=== PATIENT | female | born 1995 | race Caucasian/White ===

== ENCOUNTER 2018-11-03 14:48 | Emergency (ER) | payer BC ==
[2018-11-03] MEDS ORDERED: NS 0.9% 1000 ML** 2,000 ML IV ONE (14:56)
--- NOTE | 2018-11-03 15:17 | ED ---
Abdominal Pain/Female - HPI Summary HPI Summary: Patient is a 23-year-old obese female with a history of type II DM and pancreatitis presenting to the ED with epigastric pain and RUQ pain with associated nausea and vomiting. She states she has been in DKA before and states this feels different. She is also stating this feels similar to her previous pancreatitis episodes. Denies any alcohol use. She states she has been hospitalized for acute pancreatitis with unknown cause. Last by mouth intake was yesterday, continues to have nausea and vomiting. She is also endorsing some bilateral lower extremity cramping. She continues to take all of her medications as prescribed including her insulin. Nothing makes symptoms better or worse. She arrives by EMS and a glucose obtained was 278. - History of Current Complaint Chief Complaint: EDGeneral Stated Complaint: STOMACH PAIN PER EMS Time Seen by Provider: 11/03/18 14:49 Hx Obtained From: Patient ?: No Onset/Duration: Sudden Onset Timing: Constant Severity Initially: Moderate Severity Currently: Moderate Pain Intensity: 8 Pain Scale Used: 0-10 Numeric Location: Epigastric Radiates: No Character: Sharp Aggravating Factor(s): Nothing Alleviating Factor(s): Nothing Associated Signs and Symptoms: Positive: Nausea, Vomiting - Risk Factors Ectopic Risk Factor: Negative Ovarian Torsion Risk Factor: Negative Allergies/Adverse Reactions: Allergies Allergy/AdvReac Type Severity Reaction Status Date / Time acetaminophen [From Tylenol] Allergy Hives/Diff. Verified 11/03/18 14:55 Breathing/I tching bee venom protein (honey bee) Allergy Swelling Verified 11/03/18 14:55 Of Face,Lips,& Throat ibuprofen Allergy Hives/Diff. Verified 11/03/18 14:55 Breathing/I tching Penicillins Allergy Hives Verified 11/03/18 14:55 tramadol Allergy Hives Verified 11/03/18 14:55 Home Medications: Home Medications Insulin NPH Hum/Reg Insulin Hm [Novolin 70-30 Flexpen] 75 unit SUBCUT BID [History Confirmed 11/03/18] PMH/Surg Hx/FS Hx/Imm Hx Previously Healthy: Yes - Immunization History Hx Pertussis Vaccination: No Immunizations Up to Date: Yes Infectious Disease History: No Infectious Disease History: Denies: Traveled Outside the [place] in Last 30 Days - Social History Occupation: Unemployed Lives: With Family Alcohol Use: None Hx Substance Use: No Substance Use Type: Reports: None Hx Tobacco Use: No Smoking Status (MU): Never Smoked Tobacco Review of Systems Constitutional: Negative Negative: Fever, Chills, Fatigue, Skin Diaphoresis Negative: Palpitations, Chest Pain Negative: Shortness Of Breath, Cough Positive: Abdominal Pain, Vomiting, Nausea. Negative: Diarrhea Genitourinary: Negative Positive: no symptoms reported, see HPI Negative: Arthralgia, Myalgia Skin: Negative All Other Systems Reviewed And Are Negative: Yes Physical Exam Triage Information Reviewed: Yes Vital Signs On Initial Exam: Initial Vitals Temp Pulse Resp BP Pulse Ox 98 F 80 20 116/77 97 11/03/18 14:49 11/03/18 14:49 11/03/18 14:49 11/03/18 14:49 11/03/18 14:49 Vital Signs Reviewed: Yes Appearance: Positive: Well-Appearing, Well-Nourished Skin: Positive: Warm, Skin Color Reflects Adequate Perfusion Head/Face: Positive: Normal Head/Face Inspection Neck: Positive: Nontender, No Lymphadenopathy Respiratory/Lung Sounds: Positive: Clear to Auscultation, Breath Sounds Present Cardiovascular: Positive: RRR, Pulses are Symmetrical in both Upper and Lower Extremities Abdomen Description: Positive: Other: - tenderness to the epigastric region and RUQ Bowel Sounds: Positive: Present Musculoskeletal: Positive: Normal, Strength/ROM Intact Neurological: Positive: Alert, Oriented to Person Place, Time, Speech Normal Psychiatric: Positive: Affect/Mood Appropriate AVPU Assessment: Alert Diagnostics - Vital Signs Vital Signs Temp Pulse Resp BP Pulse Ox 11/03/18 14:49 98 F 80 20 116/77 97 - Laboratory Result Diagrams: 11/03/18 15:30 11/03/18 15:30 Lab Statement: Any lab studies that have been ordered have been reviewed, and results considered in the medical decision making process. Abdominal Pain Fem Course/Dx - Course Course Of Treatment: During this course treatment, the patient's evaluated for acute onset of mid abdominal pain which is nonradiating. She is also endorsing RUQ pain. Denies any flank pain bilaterally. On physical examination, obese female patient appears in pain distress, rating at 8/10. Dry mucous membranes. Currently complaining of abdominal pain and bilateral leg cramping. She denies any history of DVTs or PE. Denies any CP or SOB. Lungs CTA, RRR. Abdominal tender just to the RUQ with positive Vazquez sign. Patient is status post cholecystectomy. No pain to the LUQ or LLQ. No pain to the RLQ. Symptoms are worse with positioning or better with rest. She is not taken any medication [id number] for relief. She is endorsing a 2/10 headache. Labs obtained: elevated lipase, otherwise unremarkable. She is given 2 L fluids with good effect. She is given famotidine and Zofran. On re-examination , patient states she is asymptomatic. Denies any pain at this time. dx with abd pain. - Diagnoses Provider Diagnoses: Abdominal pain Discharge ED - Sign-Out/Discharge Documenting (check all that apply): Patient Departure Patient Received Moderate/Deep Sedation with Procedure: No - Discharge Plan Condition: Stable Disposition: HOME Patient Education Materials: Acute Abdominal Pain (ED) Referrals: No Primary Care Phys,NOPCP [Primary Care Provider] - Additional Instructions: Eat small amounts at a time Drink plenty of fluids If symptoms worsen, please return to the ED - Billing Disposition and Condition Condition: STABLE Disposition: Home
[2018-11-03 15:52] LABS: ABS Basophils 0.1 10^3/ul (0-0.2); ABS Eosinophils 0.2 10^3/ul (0-0.6); ABS Lymphocytes 3.1 10^3/ul (1.0-4.8); ABS Monocytes 0.6 10^3/ul (0-0.8); ABS Neutrophils 5.8 10^3/ul (1.5-7.7); Eosinophil % 2.5 %; Hematocrit 36 % (35-47); Hemoglobin 12.4 g/dL (12.0-16.0); Lymphocyte % 31.9 %; Mean Corpuscular HGB Conc 34 g/dL (31-36); Mean Corpuscular Hemoglobin 31 pg (27-31); Mean Corpuscular Volume 91 fL (80-97); Mean Platelet Volume 8.3 fL (7.4-10.4); Nucleated Red Blood Cells % 0.1; Platelet Count 241 10^3/uL (150-450); Red Blood Count 3.97 10^6 /uL (3.70-4.87); Red Cell Distribution Width 14 % (10-15); White Blood Count 9.9 10^3/uL (3.5-10.8)
[2018-11-03 16:02] LABS: ALT 26 U/L (7-52); AST 15 U/L (13-39); Albumin 3.5 g/dL (3.2-5.2); Albumin/Globulin Ratio 1.4 (1-3); Alkaline Phosphatase 64 U/L (34-104); Amylase 44 U/L (29-103); Anion Gap 4 mmol/L (2-11); BUN/Creatinine Ratio 16.5 (8-20); Blood Urea Nitrogen 15 mg/dL (6-24); C Reactive Protein 12.32 mg/L (<8.01); CO2 Carbon Dioxide 25 mmol/L (22-32); Calcium 8.1 mg/dL (8.6-10.3); Chloride 108 mmol/L (101-111); EGFR African American 91.1 (>60); EGFR Non-African American 75.3 (>60); Globulin 2.5 g/dL (2-4); Glucose 276 mg/dL (70-100); Magnesium 1.8 mg/dL (1.9-2.7); Potassium 4.2 mmol/L (3.5-5.0); Sodium 137 mmol/L (135-145)
[2018-11-03 16:04] LABS: HCG Pregnancy < 0.60 mIU/mL
[2018-11-03] MEDS ORDERED: Ondansetron INJ* 2 MG/ML VIAL IV ONE (16:11)
[2018-11-03] MEDS ORDERED: Famotidine IV* 10 MG/ML 2 ML (20 mg) IV SLOW PU ONE (16:11)
[2018-11-03 17:26] VITALS: BP 122/74
== END 2018-11-03 17:25 | disposition home or self-care (01) ==
LOC: ED 14:48
DX: R10.11 Right upper quadrant pain (principal); E11.9 Type 2 diabetes mellitus without complications; K85.90 Acute pancreatitis without necrosis or infection, unspecified; Z79.4 Long term (current) use of insulin; Z88.0 Allergy status to penicillin; E66.9 Obesity, unspecified
CPT/HCPCS: 36415; 80053; 82150; 82803; 83605; 83690; 83735; 84702; 85025; 86140; 96361; 96374; 96375; 99283; J2405

== ENCOUNTER 2018-11-05 20:56 | Emergency (ER) | payer BC ==
[2018-11-05] MEDS ORDERED: NS 0.9% 1000 ML** 1,000 ML IV ONE (21:30)
--- NOTE | 2018-11-05 21:46 | ED ---
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 She notes that the pain is constant, described as stabbing, and she rates her current pain severity an 8/10. She mentions that her blood sugar levels were above 400 earlier today and has taken over 100 units of regular insulin, and also takes 70/30. She has currently run out of regular insulin. Blood sugar before leaving her home was 480. She is unable to eat or drink anything because she immediately vomits afterwards. No alleviating factors noted. She also reports nausea and burning when urinating but denies any fever or diarrhea. She is a smoker and has Hx of DM, HTN, asthma, and anxiety. Home Medications Medication Instructions Recorded Confirmed Type Insulin NPH Hum/Reg Insulin Hm 75 unit SUBCUT BID 11/03/18 11/05/18 History [Novolin 70-30 Flexpen] Insulin Regular, Human [Humulin R 20 unit SUBCUT TID WITH MEALS 11/03/18 History U-500 Kwikpen] - History of Current Complaint Chief Complaint: EDDiabeticProb Stated Complaint: "ABDOMINAL PAIN UNCONTROLLED SUGAR PER PT" Time Seen by Provider: 11/05/18 21:22 Hx Obtained From: Patient Onset/Duration: Sudden Onset, Lasting Days, Still Present Timing: Constant Severity Initially: Severe Severity Currently: Severe Pain Intensity: 8 Pain Scale Used: 0-10 Numeric Location: Discrete At: RUQ Character: Other: - stabbing Aggravating Factor(s): Food Alleviating Factor(s): Nothing Associated Signs and Symptoms: Positive: Nausea, Vomiting, Other: - burning. Negative: Fever, Diarrhea Allergies/Adverse Reactions: Allergies Allergy/AdvReac Type Severity Reaction Status Date / Time acetaminophen [From Tylenol] Allergy Hives/Diff. Verified 11/03/18 14:55 Breathing/I tching bee venom protein (honey bee) Allergy Swelling Verified 11/03/18 14:55 Of Face,Lips,& Throat ibuprofen Allergy Hives/Diff. Verified 11/03/18 14:55 Breathing/I tching Penicillins Allergy Hives Verified 11/03/18 14:55 tramadol Allergy Hives Verified 11/03/18 14:55 PMH/Surg Hx/FS Hx/Imm Hx Endocrine/Hematology History: Reports: Hx Diabetes Cardiovascular History: Reports: Hx Hypertension Respiratory History: Reports: Hx Asthma Psychiatric History: Reports: Hx Anxiety - Surgical History Surgery Procedure, Year, and Place: cholecystectomy Infectious Disease History: No Infectious Disease History: Denies: Traveled Outside the [place] in Last 30 Days - Family History Known Family History: Positive: Hypertension, Diabetes, Other - Stomach Cancer - Social History Alcohol Use: Occasionally Hx Substance Use: No Substance Use Type: Reports: None Hx Tobacco Use: No Smoking Status (MU): Light Every Day Tobacco Smoker Review of Systems Negative: Fever Positive: Abdominal Pain, Vomiting, Nausea. Negative: Diarrhea Positive: burning All Other Systems Reviewed And Are Negative: Yes Physical Exam - Summary Physical Exam Summary: General: Well-developed, Well-nourished, morbidly obese female. No acute distress. HEENT: Normocephalic, Atraumatic. Eyes: Conjuctiva normal, PERRL. Ears: TMs within normal limits. Nares: (-) discharge, (-) erythema. Oropharynx: Clear, mucous membranes moist, (-) exudates. Neck: Soft, FROM, (-) lymphadenopathy, (-) thyromegaly, (-) JVD. Cardiovascular: Normal sinus rhythm, (-) murmur. Lungs: Clear to auscultation bilaterally (-) wheezes, (-) rales, (-) rhonchi. Abdomen: Soft, moderate RUQ tenderness, non-distended, (-) organomegaly, normal bowel sounds. Back: (-) CVA tenderness Extremities: No edema. Skin: Warm, dry, (-) rash. Neuro: Alert and oriented x3, no focal deficits. Psychiatric: Mood normal, affect normal. Triage Information Reviewed: Yes Vital Signs On Initial Exam: Initial Vitals Temp Pulse Resp BP Pulse Ox 98.5 F 95 20 136/92 99 11/05/18 20:56 11/05/18 20:56 11/05/18 20:56 11/05/18 20:56 11/05/18 20:56 Vital Signs Reviewed: Yes Diagnostics - Vital Signs Vital Signs Temp Pulse Resp BP Pulse Ox 11/05/18 20:56 98.5 F 95 20 136/92 99 - Laboratory Result Diagrams: 11/05/18 22:18 11/05/18 22:18 Lab Statement: Any lab studies that have been ordered have been reviewed, and results considered in the medical decision making process. Re-Evaluation - Re-Evaluation First Eval Re-Evaluation Time: 01:49 Comment: I have discussed results with the patient and (Sx) is resolved. Discussed symptoms that warrant immediate return to ED. 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 She also reports nausea and burning when urinating but denies any fever or diarrhea. Test results are normal except for sodium 134, chloride 100, Creatinine 1.09, Glucose 511 @2218, AST 12, POC glucose 344 @0059, and 3+ urine glucose. In the ED course pt was given 20 units insulin, 15 mg Toradol, 4 mg Zofran, 40 mg Protonix, and 1000 mls fluids. Final Dx are abdominal pain and hyperglycemia. The pt will be discharged home with PCP follow up. Pt is agreeable with this plan. - Diagnoses Provider Diagnoses: Hyperglycemia, Abdominal pain Discharge ED - Sign-Out/Discharge Documenting (check all that apply): Patient Departure - discharge Patient Received Moderate/Deep Sedation with Procedure: No - Discharge Plan Condition: Stable Disposition: HOME Prescriptions: Insulin Regular, Human [Humulin R U-500 Kwikpen] 20 unit SUBCUT TID WITH MEALS # 30 [email or web address] Patient Education Materials: Acute Abdominal Pain (ED), Diabetic Hyperglycemia (ED) Referrals: [facility] [Outside] - 3 Days Additional Instructions: Please follow a clear liquid diet. Please take home medications as prescribed. Please follow up with your primary care physician within three days. Please return to ED for any new or worsening symptoms. - Billing Disposition and Condition Condition: STABLE Disposition: Home - Attestation Statements Document Initiated by Maniibe: Yes Documenting Scribe: Toni Joya Provider For Whom Gm is Documenting (Include Credential): Zena Boyer MD Scribe Attestation: Toni Shoemaker, scribed for Zena Boyer MD on 11/06/18 at 0409. Scribe Documentation Reviewed: Yes Provider Attestation: The documentation as recorded by the Toni lozano accurately reflects the service I personally performed and the decisions made by me, Zena Boyer MD Status of Scribe Document: Viewed
[2018-11-05 21:55] LABS: Urine Appearance Clear; Urine Bilirubin Negative (Negative); Urine Blood Negative (Negative); Urine Color Straw; Urine Glucose 3+(>=500 mg/dL) (Negative); Urine Ketones Negative (Negative); Urine Nitrite Negative (Negative); Urine Protein Negative (Negative); Urine Specific Gravity 1.021 (1.010-1.030); Urine Urobilinogen Negative (Negative)
[2018-11-05 22:32] LABS: ABS Basophils 0.1 10^3/ul (0-0.2); ABS Eosinophils 0.2 10^3/ul (0-0.6); ABS Lymphocytes 3.5 10^3/ul (1.0-4.8); ABS Monocytes 0.5 10^3/ul (0-0.8); ABS Neutrophils 5.5 10^3/ul (1.5-7.7); Eosinophil % 2.2 %; Hematocrit 40 % (35-47); Hemoglobin 13.7 g/dL (12.0-16.0); Lymphocyte % 35.6 %; Mean Corpuscular HGB Conc 34 g/dL (31-36); Mean Corpuscular Hemoglobin 31 pg (27-31); Mean Corpuscular Volume 91 fL (80-97); Mean Platelet Volume 8.8 fL (7.4-10.4); Nucleated Red Blood Cells % 0.1; Platelet Count 262 10^3/uL (150-450); Red Blood Count 4.39 10^6 /uL (3.70-4.87); Red Cell Distribution Width 14 % (10-15); White Blood Count 9.7 10^3/uL (3.5-10.8)
[2018-11-05 22:35] LABS: INR 1.09 (0.82-1.09)
[2018-11-05 22:46] LABS: Albumin/Globulin Ratio 1.4 (1-3); BUN/Creatinine Ratio 17.4 (8-20); Calcium 10.1 mg/dL (8.6-10.3); EGFR Non-African American 61.2 (>60); Globulin 2.9 g/dL (2-4); Potassium 4.4 mmol/L (3.5-5.0); Total Bilirubin 0.3 mg/dL (0.2-1.0); Total Protein 6.9 g/dL (6.4-8.9)
[2018-11-05] MEDS ORDERED: Insulin REGULAR(*) 1 UNITS UNIT SUBCUT ONE (22:49)
[2018-11-05 22:52] LABS: HCG Pregnancy 0.88 mIU/mL
[2018-11-05] MEDS ORDERED: Ketorolac INJ* 30 MG/ML 1 ML VIAL IV PUSH ONE (23:47)
[2018-11-05] MEDS ORDERED: Ondansetron INJ* 2 MG/ML VIAL IV ONE (23:48)
[2018-11-06] MEDS ORDERED: Pantoprazole IV* 40 MG IV ONE (00:17)
[2018-11-06 02:11] VITALS: BP 133/89
== END 2018-11-06 02:10 | disposition home or self-care (01) ==
LOC: ED 20:56
DX: R10.11 Right upper quadrant pain (principal); E11.65 Type 2 diabetes mellitus with hyperglycemia; I10 Essential (primary) hypertension; J45.909 Unspecified asthma, uncomplicated; F41.9 Anxiety disorder, unspecified; F17.200 Nicotine dependence, unspecified, uncomplicated; Z90.49 Acquired absence of other specified parts of digestive tract; Z79.4 Long term (current) use of insulin; Z88.6 Allergy status to analgesic agent; Z88.5 Allergy status to narcotic agent; Z88.0 Allergy status to penicillin
CPT/HCPCS: 36415; 80053; 81003; 83605; 83690; 84702; 85025; 85610; 87040; 96361; 96374; 96375; 99284; J1885; J2405

== ENCOUNTER 2019-01-01 09:10 | Observation (INO) | payer BC, OTHER ==
[2019-01-01] MEDS ORDERED: Ondansetron INJ* 2 MG/ML VIAL IV ONE (09:29)
[2019-01-01] MEDS ORDERED: NS 0.9% 1000 ML** 1,000 ML IV ONE ×2 (09:29→11:02)
--- NOTE | 2019-01-01 09:34 | ED ---
Abdominal Pain/Female - HPI Summary HPI Summary: Patient is a 23-year-old female who presents emergency department for right lower quadrant abdominal pain, nausea and vomiting 3 days. Patient has a past medical history of hypertension, obesity, type 2 diabetes, history of pancreatitis. Patient denies fever, diarrhea, dysuria. Symptoms are moderate in severity. No current modifying factors. Patient states she has not been able to eat or drink a last few days secondary to nausea. Denies ETOH. Hx of cholecystectomy. Pt. otherwise denies vagina discharge/bleeding or concern for STIs. - History of Current Complaint Chief Complaint: EDAbdPain Stated Complaint: LOW RT QUADRANT PAIN PER PT Time Seen by Provider: 01/01/19 09:16 Hx Obtained From: Patient Pain Intensity: 8 Allergies/Adverse Reactions: Allergies Allergy/AdvReac Type Severity Reaction Status Date / Time acetaminophen [From Tylenol] Allergy Hives/Diff. Verified 01/01/19 09:14 Breathing/I tching bee venom protein (honey bee) Allergy Swelling Verified 01/01/19 09:14 Of Face,Lips,& Throat ibuprofen Allergy Hives/Diff. Verified 01/01/19 09:14 Breathing/I tching Penicillins Allergy Hives Verified 01/01/19 09:14 tramadol Allergy Hives Verified 01/01/19 09:14 PMH/Surg Hx/FS Hx/Imm Hx Previously Healthy: Yes Endocrine/Hematology History: Reports: Hx Diabetes Cardiovascular History: Reports: Hx Hypertension Respiratory History: Reports: Hx Asthma Psychiatric History: Reports: Hx Anxiety - Surgical History Surgery Procedure, Year, and Place: cholecystectomy Infectious Disease History: No Infectious Disease History: Denies: Traveled Outside the [place] in Last 30 Days - Family History Known Family History: Positive: Hypertension, Diabetes, Other - Stomach Cancer - Social History Occupation: Unemployed Lives: With Family Alcohol Use: Occasionally Hx Substance Use: No Substance Use Type: Reports: None Hx Tobacco Use: No Smoking Status (MU): Light Every Day Tobacco Smoker Review of Systems Constitutional: Negative Negative: Fever Cardiovascular: Negative Respiratory: Negative Positive: Abdominal Pain, Vomiting, Nausea Genitourinary: Negative Musculoskeletal: Negative Skin: Negative All Other Systems Reviewed And Are Negative: Yes Physical Exam Triage Information Reviewed: Yes Vital Signs On Initial Exam: Initial Vitals Temp Pulse Resp BP Pulse Ox 97.9 F 93 16 135/85 98 01/01/19 09:12 01/01/19 09:12 01/01/19 09:12 01/01/19 09:12 01/01/19 09:12 Vital Signs Reviewed: Yes Appearance: Positive: Well-Appearing - Patient lying in bed in no acute distress. Appears in pain with changing positions. Skin: Positive: Warm, Dry Head/Face: Positive: Normal Head/Face Inspection Eyes: Positive: Normal, EOMI Neck: Positive: Supple Respiratory/Lung Sounds: Positive: Clear to Auscultation, Breath Sounds Present Cardiovascular: Positive: Normal, RRR Abdomen Description: Positive: Other: - Obese. Abdomen is soft with marked tenderness to the right lower quadrant with guarding. Bilateral flank pain on palpation. Neurological: Positive: Normal, CN Intact II-III Psychiatric: Positive: Affect/Mood Appropriate Procedures - Procedure Summary Procedure Summary: US IV Ultrasound Guided Peripheral IV Procedure Note Indication: Unable to obtain adequate IV access Skin Prep:Chlorhexidine Sterile Prep (allowed to dry for thirty seconds) Sterility: Gloves Insertion: Appropriate time out was taken. Ultrasound guidance was utilized for vein selection, to document selected vessel patency and real time ultrasound visualization of vascular needle entry into venous lumen. Insertion Site: Left AC vein Type of catheter: 18 gauge catheter Blood return:yes Saline lock: yes Post Procedure: Estimated blood loss: minimal - Sedation Patient Received Moderate/Deep Sedation with Procedure: No Diagnostics - Vital Signs Vital Signs Temp Pulse Resp BP Pulse Ox 01/01/19 09:12 97.9 F 93 16 135/85 98 - Laboratory Result Diagrams: 01/01/19 09:51 01/01/19 09:51 Lab Statement: Any lab studies that have been ordered have been reviewed, and results considered in the medical decision making process. Abdominal Pain Fem Course/Dx - Course Course Of Treatment: Patient in with abdominal pain, nausea and vomiting. She is afebrile with stable vital signs. Patient reportedly typically goes to [facility] and has been to our ER 3 times for abdominal pain the last few months. Pt. has numerous drug allergies. Pt. given pain and nausea meds. Will obtain labs and ct scan to evaluate appendix . CBC unremarkable. Mildly elevated CRP. Lipase mildly elevated at 238. CT scan negative for acute findings. On re-exam pt. still c/o significant RLQ pain, will obtain u/s to evaluate ovary. U/S negative for acute findngs per radiology. pt. notes pain and nausea are persisting. Pt. notes she has not been able to eat or drink secondary to epigastric pain and N/V. Suspect early pancreatitis. Unclear of RLQ pain. Discussed with Dr. Jordan, hospitalist, who agrees to admission. - Diagnoses Differential Diagnosis: Positive: Appendicitis, Ectopic , Ovarian Cyst , , Renal Colic Provider Diagnoses: Pancreatitis, Abdominal pain Discharge ED - Sign-Out/Discharge Documenting (check all that apply): Patient Departure - Discharge Plan Condition: Stable Disposition: ADMITTED TO [facility] - Billing Disposition and Condition Condition: STABLE Disposition: Admitted to [facility] - Attestation Statements Provider Attestation: I have seen the patient with the ALVARADO and agree with the plan and documentation below except as noted: 23-year-old female with history of diabetes and obesity presents with epigastric and right lower pain, found to have elevated lipase, no evidence of appendicitis or ovarian pathology. Admitted for fluid hydration and pain control. Glenis Arnett MD
[2019-01-01 09:38] LABS: Urine Appearance Clear; Urine Bilirubin Negative (Negative); Urine Blood Negative (Negative); Urine Color Straw; Urine Glucose Negative (Negative); Urine Ketones Negative (Negative); Urine Nitrite Negative (Negative); Urine Protein Negative (Negative); Urine Specific Gravity 1.005 (1.010-1.030); Urine Urobilinogen Negative (Negative)
[2019-01-01 10:09] LABS: ABS Basophils 0.1 10^3/ul (0-0.2); ABS Eosinophils 0.2 10^3/ul (0-0.6); ABS Lymphocytes 3.3 10^3/ul (1.0-4.8); ABS Monocytes 0.4 10^3/ul (0-0.8); ABS Neutrophils 4.6 10^3/ul (1.5-7.7); Eosinophil % 2.8 %; Hematocrit 44 % (35-47); Hemoglobin 14.7 g/dL (12.0-16.0); Lymphocyte % 37.9 %; Mean Corpuscular HGB Conc 34 g/dL (31-36); Mean Corpuscular Hemoglobin 31 pg (27-31); Mean Corpuscular Volume 92 fL (80-97); Nucleated Red Blood Cells % 0.1; Red Blood Count 4.73 10^6 /uL (3.70-4.87); Red Cell Distribution Width 13 % (10-15); White Blood Count 8.6 10^3/uL (3.5-10.8)
[2019-01-01 10:24] LABS: Albumin 4.1 g/dL (3.2-5.2); Anion Gap 8 mmol/L (2-11); CO2 Carbon Dioxide 22 mmol/L (22-32); Chloride 107 mmol/L (101-111); Potassium 4.2 mmol/L (3.5-5.0); Sodium 137 mmol/L (135-145)
[2019-01-01 10:30] LABS: ALT 56 U/L (7-52); AST 38 U/L (13-39); Albumin/Globulin Ratio 1.3 (1-3); Alkaline Phosphatase 72 U/L (34-104); BUN/Creatinine Ratio 16.9 (8-20); Blood Urea Nitrogen 15 mg/dL (6-24); C Reactive Protein 13.23 mg/L (<8.01); EGFR African American 93.5 (>60); EGFR Non-African American 77.3 (>60); Globulin 3.1 g/dL (2-4); Glucose 133 mg/dL (70-100); Total Protein 7.2 g/dL (6.4-8.9)
[2019-01-01] MEDS ORDERED: Morphine 4 MG/ML VIAL (1 ml) 4 MG/ML VIAL IV ONE ×2 (10:47→12:41)
[2019-01-01 10:53] LABS: Platelet Count Platelets clumped. 10^3/uL (150-450)
--- OUTSIDE RECORDS SUMMARY | 2019-01-01 10:55 | XMS REPORT | Continuity of Care Document ---
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 Medicine Problems Description No Information Available Social History Type Date Description Comments Sex Unknown ETOH Use Rarely consumes alcohol Tobacco Use Start: Unknown Light tobacco smoker (10 or fewer cigarettes/day) Recreational Drug Use Denies Drug Use Tobacco Use Start: Unknown Patient is a current smoker, smokes every day Smoking Status Reviewed: 12/29/18 Patient is a current smoker, smokes every day Exercise Type/Frequency Does not exercise Allergies, Adverse Reactions, Alerts Active Allergies Reaction Severity Comments Date Amoxicillin hives 11/28/2018 Ibuprofen hives 11/28/2018 Macrobid hives 11/28/2018 Tramadol anaphylaxis 11/28/2018 Tylenol hives 11/28/2018 Ketorolac Tromethamine 12/02/2018 Penicillin 12/02/2018 Medications Active Medications SIG Qnty Indications Ordering Date Provider Admelog Solostar 20 units with meals 30ml E11.65 Benedict Smart MD 2018 or as directed, mdd 100Unit/ML Solution 80 units Pen-Inject Pioglitazone HCL take 15mg once 30tabs E11.65 Benedict Smart MD 12/29/2018 daily 15mg Tablets Alcohol Swabs 4-5 times/day 200units E11.65 Benedict Smart MD 12/29/2018 70% Pads Metformin HCL ER take 2 tablets at 60tabs Benedict Smart MD 11/24/2018 bedtime 750mg Tablets ER 24HR Fluticasone Inhale 1 puff twice Unknown Propionate/Salmeter a day by inhalation ol Diskus route. 250-50mcg/Dose Aerosol Humulin R Take 10 units 3 Unknown times a day by 100Unit/ML Solution injection route. Ventolin HFA Inhale 2 puffs 3 Unknown times a day by 108(90Base) mcg/Act inhalation route. Aerosol Pregabalin Take 1 capsule 3 Unknown 50mg times a day by oral Capsules route for 30 days. Lantus Solostar 60 units once daily 30ml Benedict Smart MD at bedtime, 100Unit/ML Solution substitution okay, Pen-Inject MDD 80 Escitalopram 1 by mouth every Unknown Oxalate day 5mg Tablets Immunizations Description No Information Available Vital Signs Date Vital Result Comment 12/29/2018 8:00am Height 66 inches 5'6" Weight 247.00 lb w/ shoes Heart Rate 84 /min BP Systolic Sitting 151 mmHg BP Diastolic Sitting 95 mmHg BMI (Body Mass Index) 39.9 kg/m2 Results Description No Information Available Procedures Description No Information Available Medical Devices Description No Information Available Encounters Description No Information Available Assessments Date Code Description Provider 12/29/2018 E11.65 Type 2 diabetes mellitus with hyperglycemia Benedict Smart MD 12/29/2018 Z79.4 meterman (current) use of insulin Benedict Smart MD Plan of Treatment Future Appointment(s):02/08/2019 8:20 am - Benedict Smart MD at [facility]12/29/2018 - Benedict Smart MDE11.65 Type 2 diabetes mellitus with hyperglycemiaNew Medication:Admelog Solostar 100 Unit/ML - 20 units with meals or as directed, mdd 80 unitsPioglitazone HCL 15 mg - take 15mg once dailyAlcohol Swabs 70 % - 4-5 times/dayFollow up:1 month, okay to overbook on /Instructions:1. Change metformin ER to 1500mg at bedtime. 2. Change Lantus (or Basaglar) to 60 units at bedtime. 3. Start Admelog 20 units with meals. 4. Check and record blood glucose 4 times per day before injections. 5. Reduce or eliminate carbohydrates in your diet. 6. Start pioglitazone 15mg once daily. 7. Return in 1 month for a follow-up visit. 8. We will submit documentation to your insurance company for a glucose sensor when you are able to provide the data.Z79.4 longterm (current) use of insulin Functional Status Description No Information Available Mental Status Description No Information Available Referrals Description No Information Available
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
[2019-01-01 11:32] LABS: HCG Pregnancy < 0.60 mIU/mL
[2019-01-01] MEDS ORDERED: Iodixanol* (CONTRAST) 320 MG/ML 100 ML SDV IV ONE (12:06)
[2019-01-01] MEDS ORDERED: Ondansetron INJ* 2 MG/ML VIAL IV PRN (15:29)
[2019-01-01] MEDS: Morphine INJ* 2 MG/ML 1 ML SYRINGE (TWO MG - NEW SYRINGE VERSION) IV PRN ×3 (16:40→23:42)
[2019-01-01 17:07] LABS: Triglycerides 383 mg/dL
[2019-01-01] MEDS: NS 0.9% 1000 ML** 1,000 ML IV SCH (17:20)
[2019-01-01] MEDS ORDERED: Albuterol HFA INHALER* 8 gm MDI INH PRN (17:40)
[2019-01-01] MEDS ORDERED: Insulin GLARGINE(*) 1 UNITS UNIT SUBCUT SCH (18:00)
[2019-01-01] MEDS: Pregabalin CAP(*) 50 MG PO SCH (19:35)
[2019-01-01] MEDS: Mometasone/Formoter 200/5 MDI INH SCH (19:49)
--- NOTE | 2019-01-01 22:26 | HP ---
HISTORY AND PHYSICAL: DATE OF ADMISSION: 01/01/19 PRIMARY CARE PROVIDER: Dr. Santos. OTHER PROVIDER: Dr. Smart. ATTENDING PHYSICIAN: Dr. Palmer Jordan * (dictated by [address]). CHIEF COMPLAINT: Right lower quadrant pain. HISTORY OF PRESENT ILLNESS: Ms. Shen is a 23-year-old female with past medical history of diabetes, hypertension, asthma, neuropathy, and recurrent pancreatitis requiring hospitalization 8 to 9 times, who presented to the ER today with complaints of right lower quadrant pain. She notes that she has had right upper quadrant pain that radiates down the right lower quadrant and up to the epigastric area for approximately 3 days. She rates the pain as 7/10. She describes the pain as dull but intermittently sharp. She complains of nausea and vomiting starting yesterday. She states she was eating a bagel with cream cheese last night and started vomiting, since then she has not had anything to eat, although she reports she is hungry. She reports a history of hospitalization for pancreatitis 8 to 9 times in the past. These all occurred in [place] where she recently moved from in October. She also complains of bilateral flank pain. She uses alcohol rarely, last use was greater than 1 month ago. She had a cholecystectomy in 2014, which occurred during an episode of acute pancreatitis. She has no family history of pancreatitis. She reports occasional marijuana use, last use was yesterday. She states that she started using marijuana approximately 2 weeks ago. She also has complaints of headache , dizziness, occasional cough, and fatigue. In the ER, the patient received a full workup, which included blood work revealing a normal CBC, platelet count unable to be performed due to clumping. Chem panel reveals a CRP of 13.23, lipase of 238. CT of the abdomen and pelvis was performed and shows left lobe liver atrophy versus removal, hepatomegaly with fatty infiltrate, and normal appendix. Ultrasound of the pelvis was unremarkable. The patient was given 4 mg morphine IV x2, 4 mg Zoloft, 2 L normal saline. The hospitalist team was asked to evaluate the patient for admission. PAST MEDICAL HISTORY: 1. Diabetes mellitus, insulin dependent. 2. Hypertension. 3. Asthma with possible diagnosis of COPD, follows with mobile ui/ux designer. 4. Neuropathy. 5. Depression and anxiety. PAST SURGICAL HISTORY: Cholecystectomy, tonsillectomy. HOME MEDICATIONS: Incomplete medication reconciliation. This is obtained from chart and the patient. 1. Lantus 60 units subcu IV at bedtime. 2. Metformin 1500 mg p.o. at bedtime. 3. Lexapro 5 mg p.o. daily. 4. Lyrica 50 mg p.o. t.i.d. 5. Fluticasone/salmeterol 250/50 one inhalation b.i.d. 6. Ventolin inhaler 1 inhalation q.8 hours p.r.n. DRUG ALLERGIES: MACROBID, TRAMADOL, PENICILLIN/AMOXICILLIN, TYLENOL, IBUPROFEN , BEEF. FAMILY HISTORY: Mother had a history of VA. She is due to diabetes mellitus and kidney disease. Father had hypertension, diabetes mellitus, kidney disease. Maternal grandmother had an VA. No family history of CVA, cancer, or pancreatitis. SOCIAL HISTORY: The patient currently smokes less than a half a pack per day. She has a 12-year smoking history of approximately 1-1/2 packs per day. She rarely uses alcohol, last use was approximately 1 month ago. She uses marijuana occasionally, last use was yesterday. She reports that she started using marijuana approximately 2 weeks ago. She recently moved here from [place] in October with her boyfriend. REVIEW OF SYSTEMS: A 14-point review of systems has been performed and all the pertinent positives and negatives are in the HPI, all other systems are negative. PHYSICAL EXAMINATION GENERAL: Ms. Shen is a well-developed, well-nourished, obese, young woman, who is lying on her right side, asleep when I entered, she awakes easily and appears mildly uncomfortable after waking. No acute distress. VITAL SIGNS: Temperature 97.9 temporal, heart rate 93, respiratory rate 16, oxygen saturation 98% on room air, blood pressure 135/85. HEENT: PERRL, EOMI. Nonicteric sclerae. Hearing grossly intact. Oral mucous membranes are moist. There are no lesions. Pharynx is clear without exudate. Tongue is at midline. RESPIRATORY: Symmetrical chest expansion without use of accessory muscles. Lungs clear to auscultation bilaterally. No rhonchi, wheezes, or rubs. CARDIOVASCULAR: Regular rate and rhythm with S1, S2 present without murmurs, rubs, clicks, or gallops. There is no JVD. There is no peripheral edema. ABDOMEN: Obese. Bowel sounds are mildly hypoactive throughout. Diffusely tender to palpation throughout the abdomen with increased tenderness at the right upper quadrant, right lower quadrant, and the epigastric area. No appendiceal signs. Negative for rebound tenderness. MUSCULOSKELETAL: Full range motion without pain or deformities. NEURO: The patient is asleep when I entered but awakes easily. She is alert and oriented x3. Cranial nerves are grossly intact. She is able to move all of her extremities. Motor strength is 5/5 bilaterally in upper and lower extremities. DIAGNOSTIC STUDIES/LAB DATA: Platelets clumped. Glucose 133. ALT 56. CRP 13.23. Lipase 238. Beta hCG less than 0.60. Pelvic ultrasound, impression: Unremarkable. Ultrasound of the pelvis: No sonographic features of torsion. Please note that partial or intermittent torsion may be sonographically normal. CT abdomen and pelvis, impression: The left lobe of the liver is atrophic versus surgically absent, hepatomegaly with fatty infiltration of the liver, normal appendix. ASSESSMENT AND PLAN: Ms. Shen is a 23-year-old female with a past medical history of diabetes, insulin dependent; hypertension; asthma; history of pancreatitis with report of 8 to 9 hospitalizations for this in the past, who presented to the ER today with complaints of abdominal pain, nausea, vomiting. The patient will be admitted to observation for: 1. Abdominal pain, nausea, vomiting. The patient presents with 3 days of abdominal pain in the right lower quadrant, nausea, and vomiting x1 day. Differentials include pancreatitis, cyclic vomiting syndrome. The patient reports that she has had pancreatitis in the past requiring hospitalization 8 to 9 times. We will request records from [place]. In the meantime, she will be made n.p.o. She will be given normal saline at 150 cc per hour. She will receive pain control and nausea management. We will order triglycerides. The patient reports that she recently started using marijuana approximately 2 weeks ago, it is possible she could be experiencing cyclic vomiting syndrome. Recommend hot showers and abstinence from marijuana use. 2. Diabetes mellitus. Hemoglobin A1c ordered. We will continue Lantus 25 at bedtime. We will monitor fingersticks q.4 hours. We will hold metformin and Actos. 3. Hypertension. The patient reports a history of hypertension but does not appear to be on any medications. We will continue to monitor. 4. Asthma with possible chronic obstructive pulmonary disease. The patient follows with Pulmonology. Continue her home inhalers. 5. Neuropathy. Continue Lyrica. 6. Depression and anxiety. Continue Lexapro. 7. DVT prophylaxis. According to DVT risk assessment, the patient scores 1 placing her at low risk. SCDs have been ordered. 8. Code Status: Full code. TIME SPENT: Approximately 50 minutes was spent on this admission, greater than half that time was spent [id number] with the patient obtaining a history, performing a physical, and reviewing the plan of care. The case has been reviewed with my attending, Dr. Jordan, who is in agreement with the plan of care. [place]A [id number]/[facility] #: [id number] [email or web address]
[2019-01-02] MEDS: NS 0.9% 1000 ML** 1,000 ML IV SCH (02:53)
[2019-01-02] MEDS: Morphine INJ* 2 MG/ML 1 ML SYRINGE (TWO MG - NEW SYRINGE VERSION) IV PRN ×2 (04:51→07:47)
[2019-01-02] MEDS: Mometasone/Formoter 200/5 MDI INH SCH (07:41)
[2019-01-02] MEDS: Pregabalin CAP(*) 50 MG PO SCH ×2 (07:47→07:50)
[2019-01-02 08:10] VITALS: BP 147/67
[2019-01-02] MEDS ORDERED: Escitalopram * 5 MG TAB PO SCH (09:00)
--- NOTE | 2019-01-02 11:49 | DS ---
DISCHARGE SUMMARY: DATE OF ADMISSION: 01/01/19 DATE OF DISCHARGE: 01/02/19 PRIMARY CARE PROVIDER: Dr. Santos. OTHER PROVIDER: Dr. Smart. ATTENDING PHYSICIAN: Dr. Palmer Jordan * (dictated by GUY Way) PRIMARY DIAGNOSES: 1. Abdominal pain, nausea and vomiting, possibly acute pancreatitis. 2. Possible cyclic vomiting syndrome. 3. Headache. SECONDARY DIAGNOSES: 1. Diabetes mellitus type 2, insulin dependent. 2. The patient reports hypertension, although she is not on any treatment and remained normotensive throughout her stay. 3. 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 4. Neuropathy. 5. Depression. 6. Anxiety. STUDIES WHILE IN THE HOSPITAL: 1. Abdomen and pelvis CT. Impression: The left lobe of the liver is atrophic versus surgically absent. Hepatomegaly with fatty infiltration of the liver. Normal appendix. 2. Pelvic ultrasound. Impression: Unremarkable ultrasound of the pelvis, no sonographic features of torsion. Please note that partial or intermittent torsion may be sonographically normal. DISCHARGE MEDICATIONS: Home medications: 1. Albuterol HFA inhaler 1 puff inhalation q.6 hours p.r.n. shortness of breath or wheeze. 2. Escitalopram 5 mg p.o. daily. 3. Insulin glargine 60 units subcu q.24 hours. 4. Fluticasone/salmeterol 2 puff inhalation b.i.d. 5. Insulin regular 20 units subcu t.i.d. with meals. 6. Lexapro. 7. Pregabalin 50 mg p.o. t.i.d. Changed home medications: None. New home medications: None. HISTORY OF PRESENT ILLNESS/HOSPITAL COURSE: Ms. Shen is a 23-year-old female with a past medical history of insulin-dependant diabetes, asthma, depression, anxiety, neuropathy, and reported frequent hospitalizations for pancreatitis who presented to the ER yesterday with complaints of right lower quadrant pain that she had been experiencing for approximately 3 days. She then had associated nausea and vomiting starting the day prior to admission. She was admitted to the hospital, started on IV fluids, and made n.p.o. She was noted to have a mildly elevated lipase so it was suspected that her pain, nausea, and vomiting were related to acute pancreatitis. A CT scan of the abdomen and pelvis revealed no abnormalities of the pancreas. Despite this she was treated for clinical pancreatitis. She does have a recent history of marijuana use which could be contributing to these symptoms. It was recommended that she discontinue marijuana use once she leaves the hospital. The patient remained in the hospital overnight. The following day she began eating with clear liquid diet. She asked to leave AMA. In the campus security director, she states she feels better and states "I just want to go home." She notes that she tolerated broth without nausea or vomiting for the last approximately 20 minutes. She does still have some mild abdominal pain that she rates at 4/10, but states is much better. She denies nausea or vomiting. She had reported a headache at admission for which she requested Dilaudid stating that morphine appeared to make the headache worse. We discussed possibility of rebound headache with use of opiates and therefore Dilaudid was avoided. The patient instead used ice packs and she states that her headache is gone this morning. She presented with complaints of cough, but notes that she has had this for quite some time and believes that it is from smoking. I recommended tobacco cessation products and the patient states she has patches at home and does not need anything further. At the time of discharge, again the patient is eager to be discharged home. She would like to leave against medical advise. She continues to have some mild abdominal pain, although it is improving. She does have a cough which she states is chronic and due to tobacco use. She is tolerating oral intake, although she has only had broth within the last 20 minutes. She denies nausea or vomiting. REVIEW OF SYSTEMS: A 14-point review of systems has been performed and all the pertinent positives and negatives are in the HPI. All other systems are negative. PHYSICAL EXAMINATION: Genera: Ms. Shen is an obese young woman who is sitting up in bed, she appears to be in no acute distress. She is drinking a small amount of broth when I entered. She is pleasant, cooperative, and appropriate. Vital Signs: Temperature 98.1 oral, heart rate 87, respiratory rate 16, oxygen saturation 99% on room air, blood pressure 147/67. HEENT: PERRLA, EOMI. Oral mucous membranes are moist. There are no lesions. Pharynx is clear without exudate or erythema. Cardiovascular: Regular rate and rhythm with S1, S2 present without murmurs, rubs, clicks, or gallops. There is no JVD. There is no peripheral edema. Radial and pedal pulses are palpable. Respiratory: Symmetrical chest expansion without use of accessory muscles. Lungs: Clear to auscultation bilaterally without rhonchi, wheezes, or rubs. No additional clubbing or cyanosis. Abdomen: Obese, bowel sounds in all quadrants. There is tenderness to palpation at the right lower quadrant. Neuro : The patient is awake. She is alert and oriented x3 with the cranial nerves grossly intact. DISCHARGE PLAN: Ms. Shen is stable for discharge home. CONDITION: Fair. DISPOSITION: Home. DIET: Start with clear liquids/full liquids and progress to low residual diet, then ADA/diabetic. MEDICATIONS: No changes. ACTIVITY: As tolerated. EDUCATION: 1. Follow up with primary care provider in 4 to 7 days. 2. Follow up with Dr. Smart as scheduled. 3. Follow up with Pulmonology as scheduled. 4. Recommended abstaining from marijuana as it may be causing these symptoms. 5. Recommend tobacco cessation. 6. If you have decided to leave against medical advise, please return to the ER or nearest hospital if you experience any worsening of symptoms, continued or worsening abdominal pain, nausea, vomiting, signs of systemic illness including fever, chills, or sweats. Return for chest pain or discomfort, dizziness, lightheadedness, loss of consciousness, or any other worrisome signs or symptoms. This is a summarized report of a complex medical history and hospital stay. For further details please see the entire medical record. TIME SPENT: Approximately 35 minutes was spent on this discharge, greater than half that time was spent [id number] with the patient discussing discharge plans and instructions. GUY BONILLA [id number]/CPS #: [id number] ARNULFO
== END 2019-01-02 11:00 | disposition left against medical advice (07) ==
LOC: ED 09:10 → MED 15:19
PROVIDERS: ADMIT Internal Medicine; ATTEND Internal Medicine
DX: R10.9 Unspecified abdominal pain (principal); R11.2 Nausea with vomiting, unspecified; R51 Headache; E11.9 Type 2 diabetes mellitus without complications; Z79.4 Long term (current) use of insulin; J45.909 Unspecified asthma, uncomplicated; G62.9 Polyneuropathy, unspecified; F32.9 Major depressive disorder, single episode, unspecified; F41.9 Anxiety disorder, unspecified; Z79.899 Other long term (current) drug therapy; Z88.0 Allergy status to penicillin; E66.9 Obesity, unspecified; F17.210 Nicotine dependence, cigarettes, uncomplicated; Z87.19 Personal history of other diseases of the digestive system
CPT/HCPCS: 36415; 74177; 76856; 80053; 81003; 83036; 83690; 84478; 84702; 85025; 86140; 94640; 96374; 96375; 96376; 99283; A9270-GY; G0378; J2270; J2405; Q9967

== ENCOUNTER 2019-01-07 20:32 | Observation (INO) | payer OTHER ==
[2019-01-07] MEDS ORDERED: NS 0.9% 1000 ML** 2,000 ML IV ONE (21:00)
[2019-01-07] MEDS ORDERED: Morphine 10 MG/ML VIAL (1 ml) IV ONE ×2 (21:01→22:41)
[2019-01-07] MEDS ORDERED: Ondansetron INJ* 2 MG/ML VIAL IV ONE (21:01)
--- NOTE | 2019-01-07 21:29 | ED ---
Abdominal Pain/Female - HPI Summary HPI Summary: This patient is a 23 year old F presenting to [facility] with a chief complaint of abdominal pain since 01/04/19. Symptoms aggravated by nothing. Symptoms alleviated by nothing. Patient reports she was admitted last week with pancreatitis but signed out AMA (01/02/19) and felt worse soon after leaving hospital (2 days after). Pt reports past 3 days her sugars have been bad ( lowest 470). Pt reports when boyfriend pushed on abdomen it hurt but eased the pain but as soon as he let go pt reports cringing pain. Pt reports diarrhea ( foster like (watery) and bright yellow stools) but denies bloody stools. Pt reports tested urine at home which showed trace of ketones. Hx gallbladder removal. Hx diabetes since 7 years old (unknown type). Per triage, pt reports left sided chest pain since this morning that has gotten worse. - History of Current Complaint Chief Complaint: EDAbdPain Stated Complaint: CHEST PAIN,BLOOD SUGAR, DIZZY, HIGH BP, N/V PER PT Time Seen by Provider: 01/07/19 20:54 Hx Obtained From: Patient Onset/Duration: Lasting Days, Still Present Timing: Constant Severity Currently: Moderate Pain Intensity: 5 Pain Scale Used: 0-10 Numeric Aggravating Factor(s): Nothing Alleviating Factor(s): Nothing Associated Signs and Symptoms: Positive: Chest Pain, Diarrhea. Negative: Blood in Stool Allergies/Adverse Reactions: Allergies Allergy/AdvReac Type Severity Reaction Status Date / Time acetaminophen [From Tylenol] Allergy Hives/Diff. Verified 01/01/19 09:14 Breathing/I tching bee venom protein (honey bee) Allergy Swelling Verified 01/01/19 09:14 Of Face,Lips,& Throat ibuprofen Allergy Hives/Diff. Verified 01/01/19 09:14 Breathing/I tching nitrofurantoin Allergy Hives Verified 01/07/19 23:28 [From Macrobid] Penicillins Allergy Hives Verified 01/01/19 09:14 tramadol Allergy Anaphylatic Verified 01/07/19 23:29 Shock ketorolac AdvReac Unknown Verified 01/07/19 23:29 Reaction Details Home Medications: Home Medications Lisinopril TAB* [Prinivil TAB 5 MG*] 1 tab PO DAILY 01/07/19 [History Confirmed 01/07/19] Fluticasone-Salmeterol 250-50* [Advair Diskus 250-50*] 1 puff INH BID 01/08/19 [ History Confirmed 01/08/19] Insulin Lispro [Admelog Solostar] 20 unit SUBCUT TID WITH MEALS MDD 80 01/08/19 [History Confirmed 01/08/19] Metformin ER (NF) [Glucophage ER 750 MG TAB (NF)] 1,500 mg PO BEDTIME 01/08/19 [ History Confirmed 01/08/19] Pioglitazone TAB* [Actos TAB*] 15 mg PO DAILY 01/08/19 [History Confirmed ] PMH/Surg Hx/FS Hx/Imm Hx Endocrine/Hematology History: Reports: Hx Diabetes Cardiovascular History: Reports: Hx Hypertension Respiratory History: Reports: Hx Asthma History: Reports: Hx Renal Disease - small non function right kidney, Other Problems/Disorders - small right non functioning kidney Musculoskeletal History: Reports: Hx Arthritis Sensory History: Denies: Hx Contacts or Glasses, Hx Hearing Aid Opthamlomology History: Denies: Hx Contacts or Glasses Psychiatric History: Reports: Hx Anxiety - Surgical History Surgery Procedure, Year, and Place: cholecystectomy - Immunization History Date of Tetanus Vaccine: unk Date of Influenza Vaccine: unk Infectious Disease History: No Infectious Disease History: Denies: Traveled Outside the [place] in Last 30 Days - Family History Known Family History: Positive: Hypertension, Diabetes, Other - Stomach Cancer - Social History Alcohol Use: Occasionally Hx Substance Use: No Substance Use Type: Reports: None Hx Tobacco Use: No Smoking Status (MU): Light Every Day Tobacco Smoker Review of Systems Positive: Chest Pain Positive: Abdominal Pain, Diarrhea, Other - denies blood in stool All Other Systems Reviewed And Are Negative: Yes Physical Exam - Summary Physical Exam Summary: Appearance: obese young women lying in stretcher appearing uncomfortable and is hyperventilating Skin: Warm, dry, no obvious rash Eyes: sclera anicteric, no conjunctival pallor ENT: mucous membranes moist, pharynx appears normal Neck: Supple, nontender Respiratory: Clear to auscultation, no signs of respiratory distress Cardiovascular: Normal S1, S2. No murmurs. Normal distal pulses in tibial and radial bilaterally. Abdomen: right upper quadrant tenderness with guarding. Musculoskeletal: Normal, Strength/ROM Intact Neurological: A&Ox3, awake and alert, mentation is normal, speech is fluent and appropriate Psychiatric: affect is normal, does not appear anxious or depressed Triage Information Reviewed: Yes Vital Signs On Initial Exam: Initial Vitals Temp Pulse Resp BP Pulse Ox 98.3 F 102 22 139/80 99 01/07/19 20:39 01/07/19 20:39 01/07/19 20:39 01/07/19 20:39 01/07/19 20:39 Vital Signs Reviewed: Yes Procedures - Sedation Patient Received Moderate/Deep Sedation with Procedure: No Diagnostics - Vital Signs Vital Signs Temp Pulse Resp BP Pulse Ox 01/07/19 20:39 98.3 F 102 22 139/80 99 - Laboratory Result Diagrams: 01/08/19 04:33 01/08/19 04:33 Lab Statement: Any lab studies that have been ordered have been reviewed, and results considered in the medical decision making process. Re-Evaluation - Re-Evaluation First Eval Re-Evaluation Time: 22:35 Comment: Physician discusses plan of care with pt. Abdominal Pain Fem Course/Dx - Course Course Of Treatment: This patient is a 23 year old F presenting to [facility] with a chief complaint of abdominal pain since 01/04/19. Patient reports she was admitted last week with pancreatitis but signed out AMA (01/02/19) and felt worse soon after leaving hospital (2 days after). Pt reports past 3 days her sugars have been bad (lowest 470). Pt reports when boyfriend pushed on abdomen it hurt but eased the pain but as soon as he let go pt reports cringing pain. Pt reports diarrhea (foster like (watery) and bright yellow stools) but denies bloody stools. Physical Exam Findings reveals no abnormalities except for obese young women lying in stretcher appearing uncomfortable and is hyperventilating, right upper quadrant tenderness with guarding. Test results with no significant abnormalities expect for Creatinine 1.03 H, Glucose 428 H, ALT 74 H, Urine Blood 1+ A, Urine RBC 1+ (3-5/hpf) A, Ur Squamous Epith Cells Present A, Urine Glucose 3+ (>=500 mg/dl) A. In the ED course the patient was given saline, 10 mg Morphine Sulfate IV, 8 mg Ondansetron Hcl. We discussed patient care with Dr. Penny Odom, hospitalist, who accepts pt for admission. Patient will be admitted with dx of abdominal pain and vomiting and is agreeable with this plan. - Diagnoses Provider Diagnoses: Abdominal pain, Vomiting - Provider Notifications Discussed Care Of Patient With: Penny Odom - hospitalist Time Discussed With Above Provider: 22:47 Instructed by Provider To: Admit As Inpatient Discharge ED - Sign-Out/Discharge Documenting (check all that apply): Patient Departure - admit - Discharge Plan Condition: Good Disposition: ADMITTED TO [facility] - Billing Disposition and Condition Condition: GOOD Disposition: Admitted to [facility] - Attestation Statements Document Initiated by Gm: Yes Documenting Scribe: Nicole Munguia Provider For Whom Gm is Documenting (Include Credential): Dr. Kaden Pacheco MD Scribe Attestation: Nicole Shoemaker scribed for Dr. Kaden Pacheco MD on 01/10/19 at 1741. Scribe Documentation Reviewed: Yes Provider Attestation: The documentation as recorded by the Nicole lozano accurately reflects the service I personally performed and the decisions made by me, Dr. Kaden Pacheco MD Status of Scribe Document: Viewed
[2019-01-07 21:32] LABS: ABS Basophils 0.1 10^3/ul (0-0.2); ABS Eosinophils 0.2 10^3/ul (0-0.6); ABS Lymphocytes 2.8 10^3/ul (1.0-4.8); ABS Monocytes 0.4 10^3/ul (0-0.8); ABS Neutrophils 3.3 10^3/ul (1.5-7.7); Eosinophil % 2.9 %; Hematocrit 39 % (35-47); Hemoglobin 13.1 g/dL (12.0-16.0); Lymphocyte % 41.5 %; Mean Corpuscular HGB Conc 34 g/dL (31-36); Mean Corpuscular Hemoglobin 31 pg (27-31); Mean Corpuscular Volume 91 fL (80-97); Mean Platelet Volume 8.4 fL (7.4-10.4); Nucleated Red Blood Cells % 0.1; Platelet Count 258 10^3/uL (150-450); Red Blood Count 4.31 10^6 /uL (3.70-4.87); Red Cell Distribution Width 13 % (10-15); White Blood Count 6.9 10^3/uL (3.5-10.8)
[2019-01-07 21:51] LABS: ALT 74 U/L (7-52); AST 17 U/L (13-39); Albumin 4.1 g/dL (3.2-5.2); Albumin/Globulin Ratio 1.4 (1-3); Alkaline Phosphatase 78 U/L (34-104); Anion Gap 7 mmol/L (2-11); BUN/Creatinine Ratio 10.7 (8-20); Blood Urea Nitrogen 11 mg/dL (6-24); C Reactive Protein 6.84 mg/L (<8.01); CO2 Carbon Dioxide 25 mmol/L (22-32); Calcium 10.1 mg/dL (8.6-10.3); Chloride 103 mmol/L (101-111); EGFR Non-African American 65.3 (>60); Glucose 428 mg/dL (70-100); Potassium 4.2 mmol/L (3.5-5.0); Sodium 135 mmol/L (135-145); Total Protein 7.1 g/dL (6.4-8.9)
[2019-01-07 21:56] LABS: HCG Pregnancy < 0.60 mIU/mL
[2019-01-07 21:58] LABS: Urine Appearance Clear; Urine Blood 1+ (Negative); Urine Color Colorless; Urine Glucose 3+(>=500 mg/dL) (Negative)
[2019-01-07 22:00] LABS: Urine Bacteria Absent (Absent); Urine Bilirubin Negative (Negative); Urine Ketones Negative (Negative); Urine Nitrite Negative (Negative); Urine Protein Negative (Negative); Urine Red Blood Cell 1+(3-5/hpf) (Absent); Urine Squamous Epithelial Cell Present (Absent); Urine Urobilinogen Negative (Negative); Urine White Blood Cell Absent (Absent)
[2019-01-07] MEDS ORDERED: Insulin REGULAR(*) 1 UNITS UNIT SUBCUT ONE (22:31)
[2019-01-07] MEDS ORDERED: PROCHLORPERAZINE INJ 5 MG/ML 2 ML VIAL IV ONE (22:41)
[2019-01-07] MEDS ORDERED: Al Hydrox/Mg Hydrox/Simet LIQ* 30 ML UDC PO PRN (23:18)
[2019-01-07] MEDS ORDERED: NS 0.9% 1000 ML** 1,000 ML IV SCH (23:30)
--- NOTE | 2019-01-07 23:41 | HP ---
History of Present Illness - History of Present Illness Reason for Visit: abdominal pain History of Present Illness: 23 year old female with history of cholecystectomy presented to the ED today with epigastric pain. She has made multiple trips to the ER for this issue. She got admitted just a few days ago and left AMA the next day. She describes the pain as epigastric, sometimes radiates to her RUQ. Immediately starts when she eats and last hours. Worsens with movement. Alleviates with fasting. She has history of recurrent pancreatitis and when she was here a couple of days ago, her lipase was slightly elevated. Today, it's normal. She got a CT scan done a couple of days ago and was normal. - Past Medical History Pulmonary: Asthma Psych: Anxiety Endocrine: Diabetes - Past Surgical History Past Surgical History: Cholecystectomy - Past Family History Family History: None - Past Social History Smoke: 1 pack per day Alcohol: Rare Drugs: Marijuana Lives: With Family Domestic Violence: Negative Review of Systems - Measurements Intake and Output: Intake and Output Last 24 Hours 01/05/19 01/06/19 01/07/19 01/08/19 06:59 06:59 06:59 06:59 Weight 245 lb - Review of Systems Constitutional Symptoms: Negative: Weight Gain, Weight Loss, Weakness, Fatigue, Fever, Night Sweats, Unexplained Falls, Other Dermatology: Negative: Normal, Rash, Skin Lesions, Cancer, Skin Lumps, Other HEENT: Negative: Normal, Change in Hearing, Vertigo, Dental Problems, Tinnitus, Sinus Problem, Other Eyes: Negative: Normal, Change in Vision, Double Vision, Eye Pain, Glaucoma, Cataract, Contacts or Glasses, Other Thyroid: Negative: Normal, Goiter, Thyroid Nodule, Cold Intolerance, Heat Intolerance , Sweatiness, Tremor, Frequent Defecation, Constipation, Palpitations, Primary Hypothyroidism, Primary Hyperthyroidism, Weight Loss, Weight Gain, Change in Skin/Hair, Change in Menstruation, Radiation Exposure, Other Pulmonary: Negative: Normal, Cough, Sputum, Hemoptysis, Wheezing, Respiratory Distress, Shortness of Breath, COPD, Asthma, Exercise Intolerance, Home Oxygen, Other Cardiology: Negative: Normal, Chest Pain, Shortness of Breath, Palpitations, Swelling of Ankles, Peripheral Vascular Dis, Edema, Faintness, Syncope, Claudication, Proximal NocturnalDyspnea, Orthopnoea, Other Gastroenterology: Positive: Abdominal Pain, Nausea, Vomiting, Diarrhea Genital - Urinary: Negative: Normal, Dysuria, Hematuria, Polyuria, Nocturia, Other Musculoskeletal: Negative: Joint Pain, Joint Stiffness, Arthritis, Osteoporosis, Low Back Pain , Sciatica, Joint Deformities, Kyphoscoliosis, Other Endocrinology: Negative: Normal, Thyroid Problems, Adrenal Problems, Gonadal Problems, Family Hx Endocrine Disorders, Obesity, Diabetes Mellitus, Hyperglycemia, Hx Hypoglycemia, Diabetic Foot Ulcers, Calluses, Hirsutism, Menstrual Abnormalities , Polydipsia, Polyuria, Gonadal Problems, Gynecomastia, Pituitary disease, Other Hematologic/Lymphatic: Negative: Anemia, Easy Bruising, Hx Leukemia, Hx Lymphoma, Use of Anticoagulant, Use of Antiplatelet Drugs, Other Neurology: Negative: Normal, Headache, Migraines, Change in Vision, Diplopia, Dizziness , Change in Balancing, Change in Coordination, Change in Memory, Change in Speech, Change in Sphincter Function, Change in Walking, Numbness\Paresthesiae, Unexplained Weakness, Hx of Stroke\TIA, Hx of Seizures, Other Objective Active Medications: Al Hydrox/Mg Hydrox/Simethicone (Maalox Plus*) 30 ml PO Q6H PRN PRN Reason: INDIGESTION Heparin Sodium (Porcine) (Heparin Vial(*)) 5,000 units SUBCUT Q8HR [facility] Sodium Chloride (Ns 0.9% 1000 Ml) 1,000 mls @ 100 mls/hr IV PER RATE [facility] Morphine Sulfate (Morphine Inj (Syringe))*) 2 mg IV Q4H PRN PRN Reason: PAIN - MILD Pantoprazole Sodium (Protonix Iv*) 40 mg IV DAILY [facility] Vital Signs - 8 hr 01/07/19 01/07/19 01/07/19 20:39 21:30 23:07 Temperature 98.3 F Pulse Rate 102 Respiratory 22 16 18 Rate Blood Pressure 139/80 (mmHg) O2 Sat by Pulse 99 Oximetry Oxygen Devices in Use Now: None Appearance: not in distress. Bucket of vomit next to her Eyes: No Scleral Icterus, PERRLA Ears/Nose/Mouth/Throat: NL Teeth, Lips, Gums Neck: NL Appearance and Movements; NL JVP, Trachea Midline Respiratory: Symmetrical Chest Expansion and Respiratory Effort, Clear to Auscultation Cardiovascular: NL Sounds; No Murmurs; No JVD Abdominal: - - epigastric tenderness. Worsens with palpation, positive rebound Skin: No Rash or Ulcers Neurological: Alert and Oriented x 3, NL Muscle Strength and Tone Result Diagrams: 01/07/19 21:22 01/07/19 21:22 Assess/Plan/Problems-Billing Assessment: - Patient Problems (1) Dyspepsia Current Visit: Yes Status: Acute Code(s): R10.13 - EPIGASTRIC PAIN SNOMED Code(s): 372370118 Comment: epigastric pain related to food suspicous for dyspepsia. Will see how she responds to protonix. She does not have much risk factors for it, maybe she should get tested for H Pylori? otherwise, could be cyclical vomiting? (2) KAT (acute kidney injury) Current Visit: Yes Status: Acute Code(s): N17.9 - ACUTE KIDNEY FAILURE, UNSPECIFIED SNOMED Code(s): 63401519 Comment: from dehydration IVF (3) Hyperglycemia Current Visit: Yes Status: Acute Code(s): R73.9 - HYPERGLYCEMIA, UNSPECIFIED SNOMED Code(s): 90673833 Comment: lantus 40 units tonight Will keep her NPO (4) Asthma Current Visit: Yes Status: Acute Code(s): J45.909 - UNSPECIFIED ASTHMA, UNCOMPLICATED SNOMED Code(s): 349643134 Comment: restart her inhalers (5) Depression Current Visit: Yes Status: Acute Code(s): F32.9 - MAJOR DEPRESSIVE DISORDER , SINGLE EPISODE, UNSPECIFIED SNOMED Code(s): 40763279 Comment: restart escitalopram (6) Full code status Current Visit: Yes Status: Acute Code(s): Z78.9 - OTHER SPECIFIED HEALTH STATUS SNOMED Code(s): 578749080 (7) DVT prophylaxis Current Visit: Yes Status: Acute Code(s): Z29.9 - ENCOUNTER FOR PROPHYLACTIC MEASURES, UNSPECIFIED SNOMED Code(s): 702648735 Comment: heparin scc
[2019-01-07] MEDS ORDERED: Ondansetron INJ* 2 MG/ML VIAL IV PRN (23:47)
[2019-01-08] MEDS: Pantoprazole IV* 40 MG IV SCH ×2 (01:14→08:31)
[2019-01-08] MEDS: Morphine INJ* 2 MG/ML 1 ML SYRINGE (TWO MG - NEW SYRINGE VERSION) IV PRN ×3 (03:11→12:44)
[2019-01-08 05:00] LABS: ABS Eosinophils 0.2 10^3/ul (0-0.6); ABS Lymphocytes 2.6 10^3/ul (1.0-4.8); ABS Monocytes 0.4 10^3/ul (0-0.8); ABS Neutrophils 2.9 10^3/ul (1.5-7.7); Eosinophil % 2.5 %; Hematocrit 37 % (35-47); Hemoglobin 12.4 g/dL (12.0-16.0); Lymphocyte % 42.5 %; Mean Corpuscular HGB Conc 34 g/dL (31-36); Mean Corpuscular Hemoglobin 31 pg (27-31); Mean Corpuscular Volume 92 fL (80-97); Mean Platelet Volume 8.4 fL (7.4-10.4); Nucleated Red Blood Cells % 0.1; Platelet Count 224 10^3/uL (150-450); Red Blood Count 4.03 10^6 /uL (3.70-4.87); Red Cell Distribution Width 13 % (10-15); White Blood Count 6.2 10^3/uL (3.5-10.8)
[2019-01-08 05:03] LABS: INR 1.08 (0.82-1.09)
[2019-01-08] MEDS: Heparin VIAL(*) 5000 UNITS/ML VIAL (FIVE THOUSAND) SUBCUT SCH ×2 (05:15→14:23)
[2019-01-08 05:16] LABS: Albumin 3.7 g/dL (3.2-5.2); Albumin/Globulin Ratio 1.4 (1-3); BUN/Creatinine Ratio 9.8 (8-20); Calcium 8.5 mg/dL (8.6-10.3); EGFR Non-African American 74.4 (>60); Globulin 2.6 g/dL (2-4); HDL Cholesterol 27.4 mg/dL; Total Bilirubin 0.3 mg/dL (0.2-1.0); Total Protein 6.3 g/dL (6.4-8.9)
[2019-01-08 05:40] LABS: TSH (Thyroid Stimulating Horm) 4.94 mcIU/mL (0.34-5.60)
[2019-01-08] MEDS: Albuterol HFA INHALER* 8 gm MDI INH SCH ×2 (08:18→14:00)
[2019-01-08] MEDS: Lisinopril TAB* 5 MG PO SCH ×2 (08:31→10:23)
[2019-01-08] MEDS ORDERED: Escitalopram * 5 MG TAB PO SCH (09:00)
[2019-01-08] MEDS ORDERED: Mometasone/Formoter 200/5 MDI INH SCH (09:00)
[2019-01-08] MEDS ORDERED: Dextrose 50% VIAL 50 ml IV PUSH PRN (09:02)
[2019-01-08] MEDS: Insulin LISPRO* 1 UNITS UNIT SUBCUT SCH ×2 (09:45→12:08)
--- NOTE | 2019-01-08 10:39 | PN ---
Subjective Date of Service: 01/08/19 Interval History: Patient reports that vomiting and nausea has resolved. Denies fever or chills, Denies abd pain. Denies chest pain or shortness of breath. Patient reports that she would like to go home. Tolerating clear liquid diet- will advance diet to consistent carbohydrate diet - tolerated this diet as well with no abdominal pain or vomiting. Blood sugars are improved Labs reviewed - LFt's with elevation Family History: Unchanged from Admission Social History: Unchanged from Admission Past Medical History: Unchanged from Admission Objective Active Medications: Al Hydrox/Mg Hydrox/Simethicone (Maalox Plus*) 30 ml PO Q6H PRN PRN Reason: INDIGESTION Albuterol (Ventolin Hfa Inhaler*) 2 puff INH TID [facility] Last Admin: 01/08/19 08:18 Dose: 2 puff Dextrose (Dextrose 50% Vial 50 Ml*) 25 ml IV PUSH .FOR FS < 60 - SS PRN PRN Reason: FS < 60 Escitalopram Oxalate (Lexapro *) 5 mg PO DAILY [facility] Last Admin: 01/08/19 09:44 Dose: 5 mg Heparin Sodium (Porcine) (Heparin Vial(*)) 5,000 units SUBCUT Q8HR [facility] Last Admin: 01/08/19 05:15 Dose: Not Given Insulin Human Lispro (Humalog*) 0 units SUBCUT [facility]; Protocol Last Admin: 01/08/19 09:45 Dose: 3 units Lisinopril (Prinivil Tab*) 5 mg PO BEDTIME [facility] Mometasone Furoate/Formoterol Fumar (Dulera 200/5 Mdi*) 2 puff INH BID [facility]; Protocol Last Admin: 01/08/19 08:18 Dose: 2 puff Morphine Sulfate (Morphine Inj (Syringe))*) 2 mg IV Q4H PRN PRN Reason: PAIN - MILD Last Admin: 01/08/19 08:31 Dose: 2 mg Ondansetron HCl (Zofran Inj*) 4 mg IV Q6H PRN PRN Reason: NAUSEA Last Admin: 01/08/19 08:31 Dose: 4 mg Pantoprazole Sodium (Protonix Iv*) 40 mg IV DAILY [facility] Last Admin: 01/08/19 08:31 Dose: 40 mg Vital Signs - 8 hr 01/08/19 01/08/19 01/08/19 03:11 04:19 08:31 Respiratory 17 18 22 Rate 01/08/19 09:31 Respiratory 19 Rate Oxygen Devices in Use Now: None Appearance: appears comfortable resting in bed , no acute distress Eyes: No Scleral Icterus Ears/Nose/Mouth/Throat: Clear Oropharnyx Neck: NL Appearance and Movements; NL JVP Respiratory: Symmetrical Chest Expansion and Respiratory Effort, Clear to Auscultation Cardiovascular: NL Sounds; No Murmurs; No JVD, No Edema Abdominal: NL Sounds; No Tenderness; No Distention Extremities: No Edema, No Clubbing, Cyanosis Skin: No Rash or Ulcers Neurological: Alert and Oriented x 3 Nutrition: Taking PO's Result Diagrams: 01/08/19 04:33 01/08/19 04:33 Assess/Plan/Problems-Billing Assessment: Ms. Shen is a 23 y.o female with pmhx of DM and asthma who presented to the emergency room several times in the last week with nausea and vomiting , no with hyperglycemia as well. - Patient Problems (1) Dyspepsia Current Visit: Yes Status: Acute Code(s): R10.13 - EPIGASTRIC PAIN SNOMED Code(s): 891820382 Comment: - c/o upper epigastric pain with food consumption - now resolved - could also be related to marijuiana use - tolerating clear liquid diet - will advance diet to consistent carbohydrate - continue protonix - will stop IV fluids (2) Hyperglycemia Current Visit: Yes Status: Acute Code(s): R73.9 - HYPERGLYCEMIA, UNSPECIFIED SNOMED Code(s): 53179903 Comment: Will continue lipro ss and lantus Blood sugar improved today - 171-190- will start consistent carbohydrate diet - patient should resume - home medications at discharge (3) Asthma Current Visit: Yes Status: Acute Code(s): J45.909 - UNSPECIFIED ASTHMA, UNCOMPLICATED SNOMED Code(s): 368487166 Comment: Continue inhalers (4) Depression Current Visit: Yes Status: Acute Code(s): F32.9 - MAJOR DEPRESSIVE DISORDER , SINGLE EPISODE, UNSPECIFIED SNOMED Code(s): 42759163 Comment: continue escitalopram (5) Elevated liver function tests Current Visit: Yes Status: Acute Code(s): R94.5 - ABNORMAL RESULTS OF LIVER FUNCTION STUDIES SNOMED Code(s): 340425999 Comment: Likely related to hypotension - will add hep c antibody - patient reports that she had hep c in 2015 was treated- reports hep panel in october 2018 was negative - will discharge with script for repeat cmp in 3 days - has follow up with PCP on wednesday (6) DVT prophylaxis Current Visit: Yes Status: Acute Code(s): Z29.9 - ENCOUNTER FOR PROPHYLACTIC MEASURES, UNSPECIFIED SNOMED Code(s): 716510894 Comment: heparin SubQ (7) Full code status Current Visit: Yes Status: Acute Code(s): Z78.9 - OTHER SPECIFIED HEALTH STATUS SNOMED Code(s): 018362404 Status and Disposition: likely discharge this afternoon
[2019-01-08 15:44] VITALS: BP 131/73
--- NOTE | 2019-01-08 17:18 | DS ---
DISCHARGE SUMMARY: DATE OF ADMISSION: 01/07/19 DATE OF DISCHARGE: 01/08/19 PROVIDER: Shleley Ball NP PRIMARY CARE PROVIDER: Dr. Bridget Leavitt. ATTENDING PHYSICIAN WHILE IN THE HOSPITAL: Dr. Krista Castle * (dictated by Shelley Ball NP). PRIMARY DIAGNOSES: 1. Dyspepsia. 2. Nausea and vomiting, resolved. 3. Elevated liver functions. SECONDARY DIAGNOSES: 1. Hypertension. 2. Type 2 diabetes, insulin dependent. 3. Anxiety. 4. Asthma. STUDIES COMPLETED WHILE IN THE HOSPITAL: She had an electrocardiogram, which showed sinus rhythm at a rate of 91. DISCHARGE MEDICATIONS: New home medication: 1. Protonix 40 mg p.o. daily. Continued home medications: 1. Advair 250/50 one puff b.i.d. 2. Admelog 20 units subcu with meals. 3. Actos 15 mg p.o. daily. 4. Glucophage 1500 mg at bedtime. 5. Lantus 60 units at bedtime. 6. Lexapro 10 mg p.o. daily. 7. Albuterol HFA inhaler 2 inhalations 3 times a day. 8. Lisinopril 5 mg p.o. daily. HISTORY OF PRESENT ILLNESS AND HOSPITAL COURSE: Ms. Shen is a 23-year-old female, who presented to the emergency room with epigastric pain. She has had multiple trips to the emergency room for this issue. She was just admitted on 01/01/19 and signed out AMA on 01/02/19 for similar complaint. She has been seen in the emergency room on 11/03/18, 11/05/18, 11/10/18, 12/01/18, 12/19/18, 12/30/18, 01/01/19, and 01/07/19 for similar complaints of abdominal pain. She did have a CT of the abdomen and pelvis on 01/01/19. Radiologist's impression from that reading was the left lobe of the liver is atrophic versus surgically absent, hepatomegaly with fatty infiltration of the liver, normal appendix. Due to her continued nausea and vomiting and hyperglycemia, Hospital Medicine was asked to see the patient for admission. While in the hospital, the patient was given IV fluids. Her blood sugars improved with insulin therapy. On the day of discharge, her blood sugars were 168 to 210. The patient had total resolution of her nausea and vomiting. She denied any further abdominal pain. Repeat lab work on 01/08/19 did show elevation in her ASTs and ALTs. ASTs were 165, ALTs were 157, likely related to mid hypotension during this hospitalization. The patient was able to tolerate solid foods without any development of abdominal pain, nausea, or vomiting. At this time, the patient is stable for discharge home. Vital Signs: Blood pressure 134/81, heart rate 83, respirations 12, O2 saturation 99%, temperature was 97.9. DISCHARGE PLAN: The patient will be discharged home. 1. Intractable nausea and vomiting/dyspepsia. The patient was given Protonix 40 mg IV, which resolved her dyspepsia, abdominal pain and has had no further nausea or vomiting. The patient does report she smokes marijuana on a daily basis. I recommend stopping marijuana use. The patient did verbalize understanding of this as this could be contributing to her episodes of vomiting. 2. Elevated liver functions. The patient did have mildly elevated liver functions that were normal on admission. Admission ASTs were 17 and ALTs were 74, repeat were 165 and 157. The patient was mildly hypotensive during this hospitalization and I suspect this can contribute to her elevation in liver functions. The patient also does have a history of hepatitis C in 2014 for which she was treated. She does report that she had a recent hepatitis profile in October of 2018, at that time it was negative. I did add on a hep C antibody to her lab work that is currently pending. I have recommended and given her a script for repeat CMP in 3 days, she should follow up with her primary care provider in 4 to 7 days for further evaluation. 3. Dyspepsia. The patient did have upper epigastric pain associated with movement and eating food. She was given Protonix 40 mg IV, which resolved her pain. We will continue her on Protonix 40 mg p.o. daily. 4. Diabetes. The patient was hyperglycemic on arrival to the hospital with blood sugar of 428. I have recommended that the patient continue her medications as previously prescribed at home. We did not adjust her medications during this hospitalization. She will continue on Actos 15 mg p.o. daily, metformin 1500 at bedtime, Basaglar 60 units at bedtime, and lispro 20 units with meals. 5. Asthma. The patient should continue on albuterol and Advair inhalers as previously prescribed. 6. Followup: The patient should follow up with her primary care provider, Dr. Bridget Leavitt, in 4 to 7 days. She does report she has an appointment on Wednesday. She should keep this appointment for followup evaluation of her elevated liver functions, nausea, and vomiting. 7. The patient was instructed to return to the emergency room for any uncontrollable nausea and vomiting, severe abdominal pain, or any other concerning symptoms. The patient did verbalize understanding. CONDITION ON DISCHARGE: Stable. DISPOSITION ON DISCHARGE: Home. TIME SPENT: Time spent on this discharge was 45 minutes, greater than half that time was spent at the bedside reviewing discharge treatments and plans with the patient and she verbalized understanding. I have discussed this with my attending, Dr. Krista Castle; she is in agreement with my plan. SHELLEY BALL NP [id number]/[facility] #: [id number] ARNULFO
[2019-01-08 19:01] LABS: Hepatitis C Antibody Reactive (Negative)
[2019-01-08] MEDS ORDERED: Lisinopril TAB* 5 MG PO SCH (21:00)
== END 2019-01-08 16:05 | disposition home or self-care (01) ==
LOC: ED 20:32 → MED 23:18 → INTOOBSV 23:18
PROVIDERS: ADMIT Student in an Organized Health Care Education/Training Program; ATTEND Internal Medicine
DX: R10.13 Epigastric pain (principal); R11.2 Nausea with vomiting, unspecified; R79.89 Other specified abnormal findings of blood chemistry; I10 Essential (primary) hypertension; E11.65 Type 2 diabetes mellitus with hyperglycemia; Z79.4 Long term (current) use of insulin; F41.9 Anxiety disorder, unspecified; J45.909 Unspecified asthma, uncomplicated; Z79.899 Other long term (current) drug therapy; R73.9 Hyperglycemia, unspecified; F32.9 Major depressive disorder, single episode, unspecified; R07.9 Chest pain, unspecified; R19.7 Diarrhea, unspecified; Z88.0 Allergy status to penicillin; F17.210 Nicotine dependence, cigarettes, uncomplicated
CPT/HCPCS: 36415; 80053; 80061; 81003; 81015; 83605; 83690; 84443; 84702; 85025; 85610; 86140; 86803; 87522; 93005; 94640; 96361; 96374; 96375; 96376; 99285; A9270-GY; G0378; J0780; J1644; J2270; J2405

== ENCOUNTER 2019-01-26 17:39 | Emergency (ER) | payer OTHER ==
[2019-01-26 17:51] VITALS: BP 120/99
--- OUTSIDE RECORDS SUMMARY | 2019-01-26 17:57 | XMS REPORT | Summary of Care ---
:1995 Author Organization [facility] Address [address] [place] [address] Care Team Providers Name Role Phone Bridget Garcia Primary Care Provider Reason for Referral Refer to Department Only (Routine) Status Reason Specialty Diagnoses / Referred By Referred To Procedures Contact Contact Pending Review PULMONARY / Diagnoses Asthma, unspecified asthma severity, unspecified whether complicated, unspecified whether persistent [facility] SWATI Gill [address] [place] [address] Reason for Visit Reason Comments Establish Care Diabetes sees Dr Smart, last A1c 8.1 11/2018, in ER last weekend glucose was 675 Depression hx of dep/anxiety, on lexapro, PHQ-9 done (score 19) Encounter Details Date Type Department Care Team Description 01/10/2019 Office Visit [place] Bridget Landaverde, Encounter to establish care (Primary Dx); Practice [facility] Neuropathy due to secondary diabetes (HCC); [address] [facility] Depression, unspecified depression type; [place] [address] Anxiety; [phone] History of hepatitis C; Asthma, unspecified asthma severity, unspecified whether complicated, unspecified whether persistent Allergies Active Allergy Reactions Severity Noted Date Comments Amoxicillin Anaphylaxis High 12/19/2018 Ibuprofen Rash 12/19/2018 Nitrofurantoin Anaphylaxis High 12/19/2018 Penicillins Anaphylaxis High 12/19/2018 Tramadol Hives 12/19/2018 documented as of this encounter (statuses as of 01/10/2019) Medications Medication Sig Dispensed Refills Start End Date Status Date albuterol HFA Take 2 Puffs by 0 Active (VENTOLIN) 108 inhalation. 7 (90 Base) MCG/ACT Inhalation Aero Soln fluticasone-salme Inhale 1 puff 0 Active terol diskus twice a day by 9 (ADVAIR DISKUS) inhalation route. 250-50 MCG/DOSE Inhalation AEROSOL POWDER, BREATH ACTIVATED Insulin Pen 1 Each. 0 Active Needle (EXEL 8 COMFORT POINT PEN NEEDLE) 31G X 6 MM Does not apply Misc pregabalin Take 1 capsule 3 0 Active (LYRICA) 50 MG times a day by 9 Oral Cap oral route for 30 days. Insulin Aspart Inject 20 Units 0 Active (NOVOLOG FLEXPEN beneath the skin SC) THREE TIMES DAILY BEFORE MEALS. Insulin Glargine Inject 45 Units 0 Active (LANTUS FOR beneath the skin OPTICLIK SC) EVERY BEDTIME. metFORMIN HCL 750 Take 1,500 mg by 0 Active MG Oral TABLET SR mouth EVERY 24 HR BEDTIME. pioglitazone Take 15 mg by 0 Active (ACTOS) 15 MG mouth DAILY. Oral Tab lisinopril Take 5 mg by 0 Active (PRINIVIL, mouth DAILY. ZESTRIL) 5 MG Oral Tab Glucose Blood In 1 Strip by Does 200 Each 3 Active Vitro not apply route 9 StripIndications: NEEDED (to Neuropathy due to check blood secondary sugars). diabetes (HCC) escitalopram Take 1 Tab by 30 Tab 1 Active (LEXAPRO) 20 MG mouth DAILY. 9 Oral TabIndications: Depression, unspecified depression type, Anxiety Insulin aspart, Take 1 strip 5 0 01/11/20 Discontinued RAPID - Acting, times a day by 9 19 (NOVOLOG) 100 miscell. route units/mL for 30 days. Insulin aspart, Inject 75 units 0 01/11/20 Discontinued RAPID - Acting, twice a day by 19 (NOVOLOG) 100 subcutaneous units/mL route. Glucose Blood In NEEDED. 0 01/11/20 Discontinued Vitro Strip 4 19 (Reorder) normal saline 0.9 Inject 10 Units 0 01/11/20 Discontinued % SOLN 100 mL beneath the skin. 8 19 with REGULAR insulin (SHORT-Acting) 100 UNIT/ML SOLN 100 Units metFORMIN Take 1,000 mg by 0 01/11/20 Discontinued (GLUCOPHAGE) 500 mouth. 19 MG Oral Tab Escitalopram Take 10 mg by 0 01/11/20 Discontinued Oxalate (LEXAPRO mouth DAILY. 19 PO) documented as of this encounter (statuses as of 01/10/2019) Active Problems Problem Noted Date Neuropathy due to secondary diabetes DM (diabetes mellitus) Overview: type 1 Depression Asthma HTN (hypertension) Anxiety Hepatitis C Overview: 2014, treated, negative viral load since then documented as of this encounter (statuses as of 01/10/2019) Social History Tobacco Use Types Packs/Day Years Used Date Current Every Day Smoker Cigarettes 0.75 Started: 2007 Smokeless Tobacco: Never Used Comments: 01/10/19 - pack years (previous 2ppd) Alcohol Use Drinks/Week oz/Week Comments Not Currently previous etoh use, none now (Dec 2018) Alcohol Habits Answer Date Recorded How often do you have a drink containing alcohol? Never 01/10/2019 How many drinks containing alcohol do you have on a typical Not asked day when you are drinking? How often do you have six or more drinks on one occasion? Not asked Sex Assigned at Date Recorded Not on file Job Start Date Occupation Industry Not on file Not on file Not on file Travel History Travel Start Travel End No recent travel history available. documented as of this encounter Last Filed Vital Signs Vital Sign Reading Time Taken Comments Blood Pressure 108/72 01/10/2019 3:35 PM EST Pulse 84 01/10/2019 3:35 PM EST Temperature - - Respiratory Rate - - Oxygen Saturation - - Inhaled Oxygen Concentration - - Weight 112 kg (247 lb) 01/10/2019 3:35 PM EST Height 167.6 cm (5' 6") 01/10/2019 3:35 PM EST Body Mass Index 39.87 01/10/2019 3:35 PM EST documented in this encounter Patient Instructions Patient InstructionsBridget Garcia NP - 01/10/2019 3:00 PM ESTStrips sent to [facility]. List of therapists. Schedule physical at some point. Referral to pulmonary. Record release to get old records. Keep follow up with Dr. Smart. Follow up with me in one month. [facility] - Welcome to [facility]. I encourage you to sign up for [facility] for on-line access. DIET AND EXERCISE: Exercise is recommended 150 minutes weekly: 30 minutes five days a week of moderate exercise such as walking. In addition is it recommended you have two days weekly of working all your major muscle groups (arms, legs) such as with weight lifting or other exercise. I recommend a well balanced healthy diet, portion control, drink plenty of fluids. The Mediterranean diet is an excellent diet. Be sure to get adequate sleep at night, 8 hours. If you cannot make an appointment please call to cancel 24 hours in advance so that appointment timecan be made available for another person. documented in this encounter Progress Notes Bridget Garcia NP - 01/10/2019 3:00 PM EST PATIENT: Gina Shen : 1995 DATE OF SERVICE: 01/10/2019 CHIEF COMPLAINT: Chief Complaint Patient presents with Establish Care Diabetes sees Dr Smart, last A1c 8.1 11/2018, in ER last weekend glucose was 675 Depression hx of dep/anxiety, on lexapro, PHQ-9 done (score 19) Subjective HISTORY OF PRESENT ILLNESS: Gina Shen is a 23-y.o. female. HPI Here to establish care. Prior PCP Dr. Santos. She was in the ER on 01/07 [facility] for abdominal pain and high blood sugar. BG >400. Was given IV insulin to bring down. They tested for ketones and had trace, no DKA. Did some blood work, admitted overnight and then sent home on Wednesday. She had 2 lows today (51 and 56). When she left the house it was at 94. She is unsure if type 1 or type [address] Smart plans to do testing to figure it out. She just moved to [place] from [place] in October. Has had one visit with Dr. Smart, follow up tomorrow with him as well. Depression since age 12. She has previously taken amitriptyline and hydroxyzine. Started on lexapro 10 mg [address] Santos but then told for further med changes she would need to [facility] get in for 4-6 months to see psychiatrist. Not currently doing therapy. Hep C antibody tested positive at [facility] - she had hepatitis C in 2014, was treated with IV medications for one month. Viral load testing every 6 months since then has been negative. Previous heroin use - stopped in 2017. LMP: Beginning of December, some months late but mostly regular, no menstrual problems. Pap (21-65): About 3 years. Eye Exam: Needs glasses but they are broken. Insurance doesn't cover full amount for glasses. Last diabetic eye exam was in February, no retinopathy. Dental Exam: 2 months ago. Had tooth pulled. Specialists: [employer] - Dr. Smart. Is supposed to see a field reporter for asthma. Diet: trying to decrease carbs. Exercise: Goes out when she can, difficult with depression and anxiety. Past Medical History: Diagnosis Date Anxiety Asthma Depression DM (diabetes mellitus) (HCC) type 1 Foot fracture left Hepatitis C HTN (hypertension) Neuropathy due to secondary diabetes (HCC) Wrist fracture right Family History Problem Relation Age of Onset Diabetes Mother Stroke Mother Diabetes Father with neuropathy Heart Disease Father GI Father renal disease Hypertension Father Depression/Depressed Father Bipolar Disorder Father No Known Problems Sister Diabetes Brother 2 Diabetes Maternal Grandmother 1 Heart Disease Maternal Grandfather COPD Maternal Grandfather Diabetes Paternal Grandmother 2 Hypertension Paternal Grandmother Diabetes Paternal Grandfather 2 No Known Problems Sister Asthma Brother Current Outpatient Medications Medication Sig albuterol HFA (VENTOLIN) 108 (90 Base) MCG/ACT Inhalation Aero Soln Take 2 Puffs by inhalation. escitalopram (LEXAPRO) 20 MG Oral Tab Take 1 Tab by mouth DAILY. fluticasone-salmeterol diskus (ADVAIR DISKUS) 250-50 MCG/DOSE Inhalation AEROSOL POWDER, BREATH ACTIVATED Inhale 1 puff twice a day by inhalation route. Glucose Blood In Vitro Strip 1 Strip by Does not apply route NEEDED ( to check blood sugars). Insulin Aspart (NOVOLOG FLEXPEN SC) Inject 20 Units beneath the skin THREE TIMES DAILY BEFOREMEALS. Insulin Glargine (LANTUS FOR OPTICLIK SC) Inject 45 Units beneath the skin EVERY BEDTIME. Insulin Pen Needle (EXEL COMFORT POINT PEN NEEDLE) 31G X 6 MM Does not apply Misc 1 Each. lisinopril (PRINIVIL, ZESTRIL) 5 MG Oral Tab Take 5 mg by mouth DAILY. metFORMIN HCL 750 MG Oral TABLET SR 24 HR Take 1,500 mg by mouth EVERY BEDTIME. pioglitazone (ACTOS) 15 MG Oral Tab Take 15 mg by mouth DAILY. pregabalin (LYRICA) 50 MG Oral Cap Take 1 capsule 3 times a day by oral route for 30 days. No current facility-administered medications for this visit. Allergies Allergen Reactions Amoxicillin Anaphylaxis Macrobid [Nitrofurantoin] [...] Smoking status: Current Every Day Smoker Packs/day: 0.75 Types: Cigarettes Start date: 2007 Smokeless tobacco: Never Used Tobacco comment: 01/10/19 - pack years (previous 2ppd) Substance and Sexual Activity Alcohol use: Not Currently Frequency: Never Comment: previous etoh use, none now (Dec 2018) Drug use: Not Currently Types: Heroin, Marijuana Comment: current marijuana (Dec 2018) Sexual activity: Yes Partners: Male Lifestyle Physical activity: Days per week: Not on file Minutes per session: Not on file Stress: Not on file Relationships Social connections: Talks on phone: Not on file Gets together: Not on file Attends caodaism service: Not on file Active member of [...] Concern Not on file Social History Narrative Recently moved from [place]. Lives with boyfriend grandmother and grandfather. Over the last 2 weeks, have you been feeling down, depressed, anxious, or hopeless?: 3 Over the past 2 weeks, have you felt little interest or pleasure in doing things ?: 3 Trouble falling or staying asleep, or sleeping too much?: 1 Feeling tired or having little energy?: 3 Poor appetite or overeating?: 3 Feeling bad about yourself or that you are a failure or have let yourself or your family down?: 2 Trouble concentrating on things, such as reading the newspaper or watching TV?: 2 Moving or speaking so slowly that other people notice OR being fidgety and restless?: 0 Thoughts that you would be better off or of hurting yourself in some way?: 2 PHQ-9 TOTAL SCORE: 19 How difficult have these problems made it for you to do your work, take care of things at home or get along with people?: Somewhat difficult In the past 2 years, have you felt depressed or sad most days, even if you felt ok?: Yes REVIEW OF SYSTEMS: Review of Systems Constitutional: Negative for chills, fever, malaise/fatigue and weight loss. HENT: Negative for congestion, ear pain, hearing loss, sinus pain and sore throat. Eyes: Negative for blurred vision. Respiratory: Negative for cough and shortness of breath. Cardiovascular: Negative for chest pain and palpitations. Gastrointestinal: Negative for abdominal pain, blood in stool, constipation, diarrhea and nausea. Genitourinary: Negative for dysuria, frequency, hematuria and urgency. Musculoskeletal: Negative for back pain, falls, joint pain, myalgias and neck pain. Skin: Negative for rash. Neurological: Negative for dizziness, tingling, tremors, sensory change, weakness and headaches. Psychiatric/Behavioral: Positive for depression. The patient is nervous/anxious. Objective PHYSICAL EXAM: VITALS: BP 108/72 | Pulse 84 | Ht 5' 6" (1.676 m) | Wt 247 lb (112 kg) | BMI 39.87 kg/m Body mass index is 39.87 kg/m. Physical Exam Vitals signs and nursing note reviewed. Constitutional: General: She is not in acute distress. Appearance: Normal appearance. She is well-developed. Cardiovascular: Rate and Rhythm: Normal rate and regular rhythm. Heart sounds: Normal heart sounds. No murmur. No friction rub. No gallop. Pulmonary: Effort: Pulmonary effort is normal. No respiratory distress. Breath sounds: Normal breath sounds. Neurological: Mental Status: She is alert. Psychiatric: Mood and Affect: Mood and affect normal. Speech: Speech normal. Behavior: Behavior normal. Behavior is cooperative. ASSESSMENT / IMPRESSION: ICD-9-CM ICD-10-CM 1. Encounter to establish care V65.8 Z76.89 2. Neuropathy due to secondary diabetes (HCC) 249.60 E13.40 Glucose Blood In Vitro Strip 357.2 3. Depression, unspecified depression type 311 F32.9 escitalopram (LEXAPRO) 20 MG Oral Tab 4. Anxiety 300.00 F41.9 escitalopram (LEXAPRO) 20 MG Oral Tab 5. History of hepatitis C V12.09 Z86.19 6. Asthma, unspecified asthma severity, unspecified whether complicated, unspecified whether persistent 493.90 J45.909 REFER TO PULMONARY Plan 1. Neuropathy due to secondary diabetes (HCC) Needs refill of strips - Glucose Blood In Vitro Strip; 1 Strip by Does not apply route NEEDED (to check blood sugars). Dispense: 200 Each; Refill: 3 2. Depression, unspecified depression type Increase lexapro to 20 mg, follow up in one month. - escitalopram (LEXAPRO) 20 MG Oral Tab; Take 1 Tab by mouth DAILY. Dispense: 30 Tab; Refill: 1 3. Anxiety - escitalopram (LEXAPRO) 20 MG Oral Tab; Take 1 Tab by mouth DAILY. Dispense: 30 Tab; Refill: 1 4. History of hepatitis C Hep c in 2014 - she had viral load testing in October, will have results sent to us. 5. Asthma, unspecified asthma severity, unspecified whether complicated, unspecified whether persistent Referral from prior PCP - never did the prior auth. For asthma, questionable COPD (prior PCP thoughtcopd, she thinks no) - REFER TO PULMONARY; Future 6. Encounter to establish care Due for pap smear - would like to establish with an obgyn, given number for [facility]. Will make appointment for a physical exam. Record release for old records. Author: Bridget Garcia NP 01/10/2019 18:59 documented in this encounter Plan of Treatment Date Type Specialty Care Team Description 02/07/2019 Office Visit Family Practice Bridget Garcia NP [address] [place] [address] [phone] 04/27/2019 Office Visit Pulmonary Jake Desir MD [address] [place] [address] [phone] Name Type Priority Associated Diagnoses Order Schedule REFER TO PULMONARY Referral Routine Asthma, unspecified asthma Expected: , severity, unspecified Expires: 01/11/2020 whether complicated, unspecified whether persistent Health Maintenance Due Date Last Done Comments Diabetic Eye Exam 1995 HEMOGLOBIN A1C 1993 PAP SMEAR 1993 PNEUMOCOCCAL 0-64 YRS (1 of 1 06/05/1999 - PPSV23) HIV SCREENING 2008 HPV IMMUNIZATION SERIES (1 - 2008 Female 3-dose series) FOOT EXAM 06/05/2011 INFLUENZA VACCINE (#1) 2018 DEPRESSION SCREENING 01/11/2020 01/10/2019, 01/10/2019 MENINGOCOCCAL VACCINE IMM Aged Out No longer eligible based on patient's age to complete this topic documented as of this encounter Goals Goal Patient Goal Associated Recent Patient-Stated? Author Type Problems Progress Blood Pressure Blood Pressure 108/72 No Radha, < 140/90 (01/10/2019 Bridget, 3:35 PM EST) SWATI Note: This is an individualized treatment (blood pressure) goal for Gina Shen: Displayed above (on the left) is your goal for blood pressure control. Your most recent blood pressure is also shown above, on the right. You should try to achieve blood pressures that are lower than your goal listed above (on the left). Depression screen Depression 19 (01/10/2019 3:25 PM Bridget Mota NP (PHQ-9) total score < 5 EST) Note: This is an individualized treatment (depression) goal for Gina Shen: Displayed above is your goal for a depression screening (PHQ-9) score that would indicate good control of your depression. Glycohemoglobin A1c < 7.0 Diabetes No Birdget Garcia NP Note: This is an individualized treatment (diabetes control, HgbA1C) goal for Gina Shen: Displayed above is your progress towards your HgbA1C goal. Your goal is shown above (on the left); your most recent HgbA1C is shown on the right. Note that lower numbers are better. Weight loss vs. 18 mo Lifestyle 0 (01/10/2019 3:35 PM Bridget Mota NP max (lbs) >= 10 EST) Note: This is an individualized lifestyle goal for Gina Shen: Your body mass index (BMI) is more than 30. You should lose weight. A reasonable starting goal is to lose 10 pounds. Displayed above is how many pounds you have lost thus far towards your 10 pound weight loss goal. Keep a regular sleep schedule Lifestyle No Bridget Garcia NP Note: This is an individualized lifestyle goal for Gina Shen: Please maintain a regular sleep schedule. This may help with some symptoms of depression. Keep immunizations current Lifestyle No Bridget Garcia NP Note: This is an individualized lifestyle goal for Gina Shen: Please be sure to keep up-to-date on recommended immunizations. For example, this would include a yearly influenza vaccine. Immunization status can be seen by looking at the Health Maintenance sections of your [facility], Plan of Care, and any After Visit Summaries. Take all prescribed medications as Self-management No Bridget Garcia NP directed Note: This is an individualized self-management goal for Gina Shen: Please take all prescribed medications as directed. 1. Do not skip doses. If you cannot afford your medications, talk with your doctor. 2. Use a pill reminder system such as a pill box if needed. Your pharmacist can help you with this. 3. Contact your Pharmacy 5 days before your medication runs out. If you cannot take your medications for any reasons, talk with your doctor. 4. Please bring all of your medication bottles and inhalers (or a list of all your medications/inhalers) with you to every visit. Potential barriers to meeting all of your care plan goals will continue to be addressed on an ongoing basis. documented as of this encounter Procedures Procedure Name Priority Date/Time Associated Diagnosis Comments GLYCO A1C (EXTERNAL) Routine 01/02/2019 DIABETES OPH EXAM Routine 03/12/2018 documented in this encounter Results GLYCO A1C (EXTERNAL) (01/02/2019) Glyco A1c (External) 8.1 [facility] PO[facility] Performing Organization Address [facility] Phone [facility] [address] [address] [place] [phone] DIABETES OPH EXAM (03/12/2018) OPHTHALMOLOGY No retinopathy No retinopathy, [facility] EXAM Retinopathy POCT Performing Organization Address City/[facility] Number [facility] [address] [place] [phone] documented in this encounter Visit Diagnoses Diagnosis Encounter to establish care - Primary Other reasons for seeking consultation Neuropathy due to secondary diabetes (HCC) Secondary diabetes mellitus with neurological manifestations, not stated as uncontrolled, or unspecified Depression, unspecified depression type Anxiety Anxiety state, unspecified History of hepatitis C Personal history of other infectious and parasitic disease Asthma, unspecified asthma severity, unspecified whether complicated, unspecified whether persistent documented in this encounter Insurance Payer Benefit Plan / Subscriber ID Effective Dates Phone Address Type Group ASHWIN NICOLE [facility] xxxxxxxxxxx 2018-Present Ashwin documented as of this encounter
== END 2019-01-26 19:57 | disposition left against medical advice (07) ==
LOC: ED 17:39
DX: Z53.21 Procedure and treatment not carried out due to patient leaving prior to being seen by health care provider (principal); R10.2 Pelvic and perineal pain
CPT/HCPCS: 93005; 99281

== ENCOUNTER 2019-01-29 09:56 | Emergency (ER) | payer OTHER ==
--- NOTE | 2019-01-29 12:49 | ED ---
Abdominal Pain/Female - HPI Summary HPI Summary: The patient is a 23 y/o F presenting to [facility] with a chief complaint of bilateral pelvic and right upper quadrant pain onset four days ago. She reports that when the pelvic pain began with intercourse, she went to [facility] for a pelvic exam, but she was unable to have one performed secondary to the pain, so she was sent here. She left without being seen, but the pain has continued to worsen in the pelvis, and she has also developed RUQ pain rated 7/10 in severity. She endorses decreased urinary output, nausea, and vomiting. She states that she has been experiencing intermittent episodes of vaginal spotting without abnormal discharge. She hasnt gotten her menstrual cycle yet, but she has taken four urine tests at home without positive results. She also notes that her blood sugars have been uncontrolled lately despite taking 60 units Lantus, 40 units/meal Admelog, and 25 units Admelog every 6 hours for better control. She hasnt experienced this pain before. PMHx: DM, HTN, asthma, COPD, renal disease right kidney, pancreatitis, ovarian cyst, hepatitis C, cholecystectomy, anxiety, bipolar disorder. Light every day smoker, occasional EtOH, no substance use. Medications reviewed. Allergies noted. - History of Current Complaint Chief Complaint: EDAbdPain Stated Complaint: ABD/PELVIC PAIN PER PT Time Seen by Provider: 01/29/19 12:33 Hx Obtained From: Patient Onset/Duration: Lasting Days - 4, Still Present Timing: Days Severity Initially: Mild Severity Currently: Moderate Pain Intensity: 7 Pain Scale Used: 0-10 Numeric Location: Discrete At: RUQ, Other - pelvic Radiates: No Character: Sharp Aggravating Factor(s): Other: - intercourse Alleviating Factor(s): Nothing Associated Signs and Symptoms: Positive: Urinary Symptoms - decreased urinary output, Vaginal Bleeding - spotting, Nausea, Vomiting. Negative: Vaginal Discharge Allergies/Adverse Reactions: Allergies Allergy/AdvReac Type Severity Reaction Status Date / Time acetaminophen [From Tylenol] Allergy Hives/Diff. Verified 01/01/19 09:14 Breathing/I tching bee venom protein (honey bee) Allergy Swelling Verified 01/01/19 09:14 Of Face,Lips,& Throat ibuprofen Allergy Hives/Diff. Verified 01/01/19 09:14 Breathing/I tching nitrofurantoin Allergy Hives Verified 01/07/19 23:28 [From Macrobid] Penicillins Allergy Hives Verified 01/01/19 09:14 tramadol Allergy Anaphylatic Verified 01/07/19 23:29 Shock ketorolac AdvReac Unknown Verified 01/07/19 23:29 Reaction Details PMH/Surg Hx/FS Hx/Imm Hx Endocrine/Hematology History: Reports: Hx Diabetes, Other Endocrine/ Hematological Disorders - pancreatitis Denies: Hx Thyroid Disease Cardiovascular History: Reports: Hx Hypertension Denies: Hx Peripheral Vascular Disease Respiratory History: Reports: Hx Asthma, Hx Chronic Obstructive Pulmonary Disease (COPD) GI History: Denies: Hx Gall Bladder Disease History: Reports: Hx Renal Disease - small non function right kidney, Other Problems/Disorders - small right non functioning kidney Musculoskeletal History: Reports: Hx Arthritis Denies: Hx Osteoporosis Sensory History: Denies: Hx Cataracts, Hx Contacts or Glasses, Hx Glaucoma, Hx Hearing Aid Opthamlomology History: Denies: Hx Cataracts, Hx Contacts or Glasses, Hx Glaucoma Neurological History: Reports: Hx Migraine Denies: Hx Headaches, Hx Seizures, Hx Transient Ischemic Attacks (TIA) Psychiatric History: Reports: Hx Anxiety, Hx Bipolar Disorder - Surgical History Surgical History: Yes Surgery Procedure, Year, and Place: cholecystectomy - Immunization History Date of Tetanus Vaccine: unk Date of Influenza Vaccine: unk Infectious Disease History: No Infectious Disease History: Reports: Hx Hepatitis - Hepatitis C Denies: Traveled Outside the [place] in Last 30 Days - Family History Known Family History: Positive: Hypertension, Diabetes, Other - Stomach Cancer - Social History Alcohol Use: Occasionally Hx Substance Use: No Substance Use Type: Reports: None Hx Tobacco Use: No Smoking Status (MU): Light Every Day Tobacco Smoker Review of Systems Positive: Abdominal Pain - pelvic and upper abdominal, Vomiting, Nausea Positive: other - decreased urinary output, spotting. Negative: discharge All Other Systems Reviewed And Are Negative: Yes Physical Exam - Summary Physical Exam Summary: Constitutional: Well-developed, Well-nourished, Alert. (-) Distressed Skin: Warm, Dry, superficial lacerations to R forearm HENT: Normocephalic; Atraumatic Eyes: Conjunctiva normal Neck: Musculoskeletal ROM normal neck. (-) JVD, (-) Stridor, (-) Nuchal rigidity Cardio: Rhythm regular, rate normal, Heart sounds normal; Intact distal pulses; Radial pulses are 2+ and symmetric. (-) Murmur Pulmonary/Chest wall: Effort normal. (-) Respiratory distress, (-) Wheezes, (-) Rales Abd: Soft, (+) mild diffuse lower abdominal tenderness, (-) Distension, (-) Guarding, (-) Rebound Musculoskeletal: (-) Edema Lymph: (-) Cervical adenopathy Neuro: Alert, Oriented x3 Psych: Mood and affect Normal Triage Information Reviewed: Yes Vital Signs On Initial Exam: Initial Vitals Temp Pulse Resp BP Pulse Ox 97.8 F 89 16 128/88 98 01/29/19 09:57 01/29/19 09:57 01/29/19 09:57 01/29/19 09:57 01/29/19 09:57 Vital Signs Reviewed: Yes Procedures - Procedure Summary Procedure Summary: US IV Ultrasound Guided Peripheral IV Procedure Note Indication: Unable to obtain adequate IV access Skin Prep:Chlorhexidine Sterile Prep (allowed to dry for thirty seconds) Sterility: Gloves Insertion: Appropriate time out was taken. Ultrasound guidance was utilized for vein selection, to document selected vessel patency and real time ultrasound visualization of vascular needle entry into venous lumen. Insertion Site: L AC Type of catheter: 18 gauge catheter Blood return:yes Saline lock: yes Post Procedure: Estimated blood loss: minimal - Sedation Patient Received Moderate/Deep Sedation with Procedure: No Diagnostics - Vital Signs Vital Signs Temp Pulse Resp BP Pulse Ox 01/29/19 11:39 98.3 F 83 16 126/78 99 01/29/19 09:57 97.8 F 89 16 128/88 98 - Laboratory Result Diagrams: 01/29/19 12:55 01/29/19 12:55 Lab Statement: Any lab studies that have been ordered have been reviewed, and results considered in the medical decision making process. Re-Evaluation - Re-Evaluation First Eval Re-Evaluation Time: 13:44 Comment: Patient noted to be walking out of the department, IV ripped out, patient stating she has a family emergency. Advised to return if she has persistent symptoms. Abdominal Pain Fem Course/Dx - Course Course Of Treatment: 23 y/o F with hx DM, pancreatitis p/w abd pain. DDx includes pancreatitis, chronic functional abdominal pain, appendicitis, and pathology, she is status post cholecystectomy. Exam relatively unremarkable today, no rigidity or suggestions of acute surgical abd. Pt with negative Vazquez 's on exam. Will provide IVFs and reglan. Lipase to evaluate for pancreatitis. Will obtain cbc to assess for underlying infection. Cmp given reports of vomiting. Serum to r/o ectopic. She denies vaginal discharge, also with no fever, so less likely PID. Will obtain UA to assess for UTI. plan for pelvic exam, pending labs and examination will consider further imaging. Of note patient recently had a CT scan for similar pain which was unremarkable as well as a pelvic ultrasound. Patient is requesting pain medication, patient has multiple allergies to non-narcotics, advised patient that she will not be given narcotics at this time however if she would to try a nonnarcotic she may. - Diagnoses Provider Diagnoses: Abdominal pain Discharge ED - Sign-Out/Discharge Documenting (check all that apply): Patient Departure - Discharge Plan Condition: Stable Disposition: ELOPEMENT Referrals: Bridget Garcia, TEXTILE SLITTING MACHINE OPERATOR [Primary Care Provider] - - Billing Disposition and Condition Condition: STABLE Disposition: Elopement - Attestation Statements Document Initiated by Gm: Yes Documenting Scribe: Maria D West Provider For Whom Gm is Documenting (Include Credential): Dr. Glenis Arnett MD Scribe Attestation: IMaria D scribed for Dr. Glenis Arnett MD on 01/29/19 at 1402. Scribe Documentation Reviewed: Yes Provider Attestation: The documentation as recorded by the Maria D lozano accurately reflects the service I personally performed and the decisions made by me, Dr. Glenis Arnett MD Status of Scribe Document: Viewed
[2019-01-29] MEDS ORDERED: NS 0.9% 1000 ML** 1,000 ML IV ONE (13:07)
[2019-01-29 13:12] LABS: ABS Eosinophils 0.2 10^3/ul (0-0.6); ABS Lymphocytes 2.7 10^3/ul (1.0-4.8); ABS Monocytes 0.5 10^3/ul (0-0.8); ABS Neutrophils 4.8 10^3/ul (1.5-7.7); Hematocrit 42 % (35-47); Lymphocyte % 32.6 %; Mean Corpuscular HGB Conc 34 g/dL (31-36); Mean Corpuscular Hemoglobin 31 pg (27-31); Mean Corpuscular Volume 91 fL (80-97); Mean Platelet Volume 8.3 fL (7.4-10.4); Platelet Count 265 10^3/uL (150-450); Red Blood Count 4.59 10^6 /uL (3.70-4.87); Red Cell Distribution Width 14 % (10-15); White Blood Count 8.2 10^3/uL (3.5-10.8)
[2019-01-29] MEDS ORDERED: Metoclopramide IV* 5 MG/ML 2 ML VIAL IV SLOW PU ONE (13:19)
[2019-01-29 13:27] LABS: Albumin 4.1 g/dL (3.2-5.2); Albumin/Globulin Ratio 1.5 (1-3); BUN/Creatinine Ratio 17.3 (8-20); Calcium 9.9 mg/dL (8.6-10.3); EGFR African American 104.2 (>60); EGFR Non-African American 86.2 (>60); Globulin 2.8 g/dL (2-4); Total Bilirubin 0.3 mg/dL (0.2-1.0); Total Protein 6.9 g/dL (6.4-8.9)
[2019-01-29 13:53] VITALS: BP 120/86
== END 2019-01-29 13:52 | disposition left against medical advice (07) ==
LOC: ED 09:56
DX: R10.11 Right upper quadrant pain (principal); R10.2 Pelvic and perineal pain; R11.2 Nausea with vomiting, unspecified; I12.9 Hypertensive chronic kidney disease with stage 1 through stage 4 chronic kidney disease, or unspecified chronic kidney disease; E11.22 Type 2 diabetes mellitus with diabetic chronic kidney disease; N18.9 Chronic kidney disease, unspecified; Z79.4 Long term (current) use of insulin; J44.9 Chronic obstructive pulmonary disease, unspecified; Z90.49 Acquired absence of other specified parts of digestive tract; Z88.5 Allergy status to narcotic agent; Z88.0 Allergy status to penicillin; Z88.6 Allergy status to analgesic agent; Z88.1 Allergy status to other antibiotic agents; Z91.030 Bee allergy status; F17.200 Nicotine dependence, unspecified, uncomplicated
CPT/HCPCS: 36415; 80053; 83690; 84702; 85025; 96374; 99283; J2765

== ENCOUNTER 2019-02-23 15:09 | Emergency (ER) | payer OTHER ==
--- OUTSIDE RECORDS SUMMARY | 2019-02-23 15:37 | XMS REPORT | Continuity of Care Document ---
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 Problems Description No Information Available Social History Type Date Description Comments Sex Unknown ETOH Use Rarely consumes alcohol Tobacco Use Start: Unknown Light tobacco smoker (10 or fewer cigarettes/day) Recreational Drug Use Denies Drug Use Tobacco Use Start: Unknown Patient is a current smoker, smokes every day Smoking Status Reviewed: 02/08/19 Patient is a current smoker, smokes every day Exercise Type/Frequency Does not exercise Allergies, Adverse Reactions, Alerts Active Allergies Reaction Severity Comments Date Amoxicillin hives 11/28/2018 Ibuprofen hives 11/28/2018 Macrobid hives 11/28/2018 Tramadol anaphylaxis 11/28/2018 Tylenol hives 11/28/2018 Ketorolac Tromethamine 12/02/2018 Penicillin 12/02/2018 Medications Active Medications SIG Qnty Indications Ordering Date Provider Novolog Mix 70/30 75 units in the 45ml E11.65 Benedict Smart MD 02/08/2019 Prefilled Flexpen morning, 45 units in the evening or (70-30)100Unit/ML as directed MDD Supn 150 Pen [place] 07/07" use twice daily 100units E11.65 Benedict Smart MD 2018 31G with insulin X 8 mm Misc Freestyle Lite Test test blood sugar 4 200units E11.65 Benedict Smart MD times daily and as Strips needed Pioglitazone HCL take 15mg once 30tabs E11.65 Benedict Smart MD 12/29/2018 15mg daily Tablets Alcohol Swabs 4-5 times/day 200units E11.65 Benedict Smart MD 12/29/2018 70% Pads Fluticasone Inhale 1 puff Unknown Propionate/Salmetero twice a day by l Diskus inhalation route. 250-50mcg/Dose Aerosol Ventolin HFA Inhale 2 puffs 3 Unknown times a day by 108(90Base) mcg/Act inhalation route. Aerosol Pregabalin Take 1 capsule 3 Unknown 50mg times a day by Capsules oral route for 30 days. Escitalopram Oxalate 1 by mouth every Unknown day 5mg Tablets History Medications Admelog Solostar 20 units with 30ml E11.65 Benedict Smart MD 12/29/2018 - meals or as 02/08/2019 100Unit/ML Solution directed, mdd 80 Pen-Inject units Basaglar Kwikpen inject 60 units 30ml E11.65 Benedict Smart MD 12/29/2018 - once daily at 02/08/2019 100Unit/ML Solution bedtime. MDD 80 Pen-Inject Metformin HCL ER take 2 tablets at 60tabs Benedict Smart MD 11/24/2018 - bedtime 02/07/2019 750mg Tablets ER 24HR Immunizations Description No Information Available Vital Signs Date Vital Result Comment 02/08/2019 1:46pm Height 66 inches 5'6" Weight 250.00 lb w/shoes Heart Rate 88 /min BP Systolic Sitting 156 mmHg BP Diastolic Sitting 96 mmHg BMI (Body Mass Index) 40.3 kg/m2 12/29/2018 8:00am Height 66 inches 5'6" Weight 247.00 lb w/ shoes Heart Rate 84 /min BP Systolic Sitting 151 mmHg BP Diastolic Sitting 95 mmHg BMI (Body Mass Index) 39.9 kg/m2 Results Description No Information Available Procedures Description No Information Available Medical Devices Description No Information Available Encounters Type Date Location Provider Dx Diagnosis Office Visit 01/08/2019 [facility] Shelley R10.13 Epigastric pain 10:34a augustus Song NP Hospitalists R11.2 Nausea with vomiting, unspecified R94.5 Abnormal results of liver function studies Office Visit 01/07/2019 [facility] Erika Veras, R10.13 Epigastric pain 10:34a augustus Song M.D. Hospitalists N17.9 Acute kidney failure, unspecified R73.9 Hyperglycemia, unspecified J44.1 Chronic obstructive pulmonary disease w (acute) exacerbation F32.9 Major depressive disorder, single episode, unspecified Office Visit 01/02/2019 [facility] Jeremias Simpson R10.9 Unspecified 10:50a Assoc,augustus Freeman, [place] abdominal pain Hospitalists R11.2 Nausea with vomiting, unspecified R51 Headache Office Visit 01/01/2019 [facility] Tatiana R10.9 Unspecified 10:50a Assoc,GUY [place] abdominal pain Hospitalists R11.2 Nausea with vomiting, unspecified Office Visit 12/29/2018 [facility] and Benedict Smart, E11.65 Type 2 diabetes 8:00a Endocrinology of MD mellitus with Continuity Editor hyperglycemia K86.1 Other chronic pancreatitis Z79.4 long-term (current) use of insulin Assessments Date Code Description Provider 02/08/2019 E11.65 Type 2 diabetes mellitus with hyperglycemia Benedict Smart MD 02/08/2019 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 01/07/2019 N17.9 Acute kidney failure, unspecified Erika Veras M.D. 01/07/2019 R73.9 Hyperglycemia, unspecified Erika Veras M.D. 01/07/2019 J44.1 Chronic obstructive pulmonary disease with Erika Veras M.D. (acute) exacerbation 01/07/2019 F32.9 Major depressive disorder, single episode, Erika Veras M.D. 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
--- OUTSIDE RECORDS SUMMARY | 2019-02-23 15:37 | XMS REPORT | Continuity of Care Document ---
:1995 External Reference #:[id number] Author Name Ezio Hernandez JR, DO (transmitted by agent of provider Luisa Recinos ) Address [address], [place] [address] Problems Description No Information Available Social History Type Date Description Comments Sex Unknown Cigarette Use Current Cigarette Smoker 1/2 Pack Daily ETOH Use Denies alcohol use Recreational Drug Use Denies Drug Use Exercise Type/Frequency Exercises rarely Seat Belt/Car Seat Always uses seat belt Allergies, Adverse Reactions, Alerts Active Allergies Reaction Severity Comments Date Tramadol 01/31/2019 Bee Sting 01/31/2019 Ketorolac Tromethamine 01/31/2019 Tylenol 01/31/2019 Ibuprofen 01/31/2019 Macrobid 01/31/2019 Inactive Allergies NKDA 01/31/2019 Medications Active Medications SIG Qnty Indications Ordering Provider Date Admelog 20 Unit c meals Unknown 100Unit/ML Solution Lantus 60 units sc 1units Unknown 100Unit/ML every night Solution Lexapro 1 by mouth Unknown 20mg Tablets every day Lisinopril 1 by mouth Unknown 5mg Tablets every day Actos Unknown 15mg Tablets Immunizations Description No Information Available Vital Signs Date Vital Result Comment 02/07/2019 8:48am Height 66 inches 5'6" 4 Parity 1 01/31/2019 11:00am BP Systolic 142 mmHg BP Diastolic 82 mmHg Height 66 inches 5'6" Weight 249.00 lb BMI (Body Mass Index) 40.2 kg/m2 Last Menstrual Period [id number] 4 Parity 1 Results Test Acquired Date Facility Test Result H/L Range Note Laboratory test 01/31/2019 [facility] Gardnerella/Yea SEE RESULT [address] [place] [address] st: Vaginal Dna BELOW [phone] Laboratory test 01/31/2019 [facility] Cytology SEE RESULT [address] [place] [address] BELOW [phone] GC/Chlamydia Dna 01/31/2019 [facility] GCCHL (SEE NOTE) [address] [place] [address] Disclaimer [phone] Chlamydia trachomatis [place] Negative Negative Neisseria gonorrhoeae (GC) [place] Negative Negative Laboratory test 01/31/2019 [facility] Trichomonas Negative Negative [address] [place] [address] vaginalis Dyana [phone] 1 SEE RESULT BELOW Name: GINA SHEN : [address]: Ezio Hernandez DO Acct: [id number] Unit: [id number] AGE: 23 Location: [facility] Re01/31/19 SEX: F Status: REG REF SPEC: [id number] FELIX: 01/31/19-[address]: Ezio Hernandez DO REQ: [id number] RECD: 01/31/194 STATUS: COMP _ SOURCE: VAGINAL SPDESC: ORDERED: Carroll,Yeast DNA COMMENTS: [id number] Would you like to order Trichomonas Vaginalis testing? Yes Procedure Result Reported Site Gardnerella/Yeast: Vaginal DNA Final 02/01/19- 1404 ML Organism 1 Negative Valentine Organism 2 POSITIVE GARDNERELLA The presence of G. vaginalis, although suggestive, is not diagnostic for bacterial vaginosis. Results should be interpreted in conjuction with other clinical and laboratory data available. Women with vaginal discharge should be evaluated for risk factors of cervicitis and pelvic inflammatory disease, toxic shock syndrome (S.aureus), and if present, evaluated for organisms not included in this assay such as N. gonorrhoeae, C. trachomatis, Mobiluncus, Mycoplasma and/or Prevotella. Mixed infections may occur. The performance of this test on patient specimens collected during or immediately after antimicrobial therapy is unknown. The presence or absence of Valentine species, or G. vaginalis cannot be used as a test for therapeutic success or failure. * ML - [facility] . END OF REPORT DEPARTMENT OF PATHOLOGY, [address] [place] [address] Bar Valdes M.D. Director [facility] # [id number] 2 SEE RESULT BELOW Name: GINA SHEN : [address]: Ezio Hernandez DO Acct: [id number] Unit: [id number] AGE: 23 Location: [facility] Re01/31/19 SEX: F Status: REG REF SPEC: [id number] FELIX: 01/31/19 [facility] DR: Ezio Hernandez DO REQ: [id number] RECD: 01/31/19 STATUS: SOUT _ ORDERED: TP IMAGE ANALYS COMMENTS: [id number] FINAL DIAGNOSIS Negative for Intraepithelial lesion or Malignancy SPECIMEN(S) RECEIVED A. Ectocervical/Endocervical CYTOLOGY ADEQUACY Specimen Adequacy: Satisfactory of evaluation Transformation zone component identified CYTOLOGY PATIENT INFORMATION Patient Information: HPV: Thin Layer Pap Test w/reflex to high risk HPV RNA testing when ASCUS Actual Specimen Date: 01/31/19 Last Menstrual Date: 12/24/18 Spec Date if unknown: 2013 Signed by and Reported on: KELSY Cutler (ASCP) [id number] This Pap test was evaluated with the assistance of the Equivalent DATAPrep Test Imaging System. Due to cytologic findings at the field pipelines supervisor microscope, comprehensive manual rescreening by a Oncology Specialist may be required. The Pap Smear is a screening test designed to aid in the detection of premalignant and malignant conditions of the uterine cervix. It is not a diagnostic procedure and should not be used as the sole means of detecting cervical cancer. Both false- positive and false- negative reports do occur. Depending on your risk status, a Pap smear should be obtained and evaluated every 1-3 years. END OF REPORT DEPARTMENT OF PATHOLOGY, [address] [place] [address] Bar Valdes M.D. Director [facility] # [id number] 3 As with all diagnostic procedures, the laboratory results obtained should be used in conjunction with other clinical information available to the physician, including confirmation by another method, as applicable. 4 As with all diagnostic procedures, the laboratory results obtained should be used in conjunction with other clinical information available to the physician, including confirmation by another method, as applicable. Procedures Description No Information Available Medical Devices Description No Information Available Encounters Type Date Location Provider Dx Diagnosis Office Visit 01/31/2019 [facility] Office Ezio Hernandez JR, Z01.411 Encntr for floorhand exam 11:00a DO (general) (routine) w abnormal findings R10.2 Pelvic and perineal pain Assessments Date Code Description Provider 01/31/2019 Z01.411 Encounter for gynecological examination Ezio Hernandez JR, DO (general) (routine) with abnormal findings 01/31/2019 R10.2 Pelvic and perineal pain Ezio Hernandez JR DO Plan of Treatment No Information Available Functional Status Description No Information Available Mental Status Description No Information Available Referrals Description No Information Available
--- OUTSIDE RECORDS SUMMARY | 2019-02-23 15:37 | XMS REPORT | Summary of Care ---
:1995 Author Organization [facility] Address [address] [place] [address] Care Team Providers Name Role Phone Bridget Garcia Primary Care Provider Reason for Referral Refer to Department Only (Routine) Status Reason Specialty Diagnoses / Referred By Referred To Procedures Contact Contact Pending Review Gastroenterology Diagnoses Chronic hepatitis C without hepatic coma (HCC) Jacques Garcia NP Gastroenterolog [address] [facility] y/Hepatology [address] [address] Road Phone: [place], [place] [phone] Fax: Scheduling Instructions Is the patient on cpap machine?No Is the patient on oxygen?No BP (!) 142/78 (BP Location: Left arm, Patient Position: Sitting) | Pulse 103 | Ht 5' 6" (1.676 m) | Wt 250 lb (113.4 kg) | SpO2 99% | BMI 40.35 kg/m BMI Readings from Last 4 Encounters: 02/07/19 : 40.35 kg/m 01/10/19 : 39.87 kg/m 12/19/18 : 37.77 kg/m Controlled Substance Medications: Anticoagulant Medications: Psychiatric/Antianxiety Medications: escitalopram Antiretroviral Medications: Reason for Visit Reason Comments Follow Up meds, diagnosed with BV 1wk ago ja fajardo cover script, period is 2 weeks late, also feels pressure and burning while urinating Encounter Details Date Type Department Care Team Description 02/07/2019 Office Visit Bridget Cast, Type 2 diabetes mellitus with other diabetic kidney complication, with long-term current use of insulin (HCC) (Primary Dx); Practice [facility] Dysuria; [address] Amenorrhea; [place] [address] [place] [address] Glucose found in urine on examination; [phone] Chronic hepatitis C without hepatic coma (HCC); Depression, unspecified depression type; Hypertension, unspecified type Allergies Active Allergy Reactions Severity Noted Date Comments Amoxicillin Anaphylaxis High 12/19/2018 Ibuprofen Rash 12/19/2018 Nitrofurantoin Anaphylaxis High 12/19/2018 Penicillins Anaphylaxis High 12/19/2018 Tramadol Hives 12/19/2018 documented as of this encounter (statuses as of 02/07/2019) Medications Medication Sig Dispensed Refills Start Date End Date Status albuterol HFA Take 2 Puffs by 0 07/14/2016 Active (VENTOLIN) 108 (90 inhalation. Base) MCG/ACT Inhalation Aero Soln fluticasone-salmet Inhale 1 puff 0 11/09/2018 Active celestino diskus twice a day by (ADVAIR DISKUS) inhalation 250-50 MCG/DOSE route. Inhalation AEROSOL POWDER, BREATH ACTIVATED Insulin Pen Needle 1 Each. 0 09/12/2017 Active (EXEL COMFORT POINT PEN NEEDLE) 31G X 6 MM Does not apply Misc pregabalin Take 1 capsule 3 0 11/09/2018 Active (LYRICA) 50 MG times a day by Oral Cap oral route for 30 days. [...] mg by 0 Active (ACTOS) 15 MG Oral mouth DAILY. Tab Glucose Blood In 1 Strip by Does 200 Each 3 01/12/2019 Active Vitro not apply route StripIndications: FIVE TIMES Neuropathy due to DAILY. secondary diabetes (HCC) lisinopril Take 1 Tab by 30 Tab 1 02/07/2019 Active (PRINIVIL, mouth DAILY. ZESTRIL) 2.5 MG Oral TabIndications: Type 2 diabetes mellitus with other diabetic kidney complication, with long-term current use of insulin (HCC) amLodipine Take 1 Tab by 30 Tab 1 02/07/2019 Active (NORVASC) 5 MG mouth DAILY. Oral TabIndications: Hypertension, unspecified type venlafaxine Take 1 Cap by 30 Cap 1 02/07/2019 Active (EFFEXOR XR) 37.5 mouth DAILY. MG Oral CAPSULE SR 24 HRIndications: Depression, unspecified depression type escitalopram Take 1 Tab by 21 Tab 0 02/07/2019 Active (LEXAPRO) 10 MG mouth DAILY. Oral TabIndications: Depression, unspecified depression type lisinopril Take 5 mg by 0 Discontinued (PRINIVIL, mouth DAILY. 9 ZESTRIL) 5 MG Oral Tab escitalopram Take 1 Tab by 30 Tab 1 01/10/2019 Discontinued (LEXAPRO) 20 MG mouth DAILY. 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 DM (diabetes mellitus) Overview: type 1 Depression Asthma HTN (hypertension) Anxiety Hepatitis C Overview: 2015, treated, negative viral load since then documented as of this encounter (statuses as of 02/07/2019) Social History Tobacco Use Types Packs/Day Years Used Date Current Every Day Smoker Cigarettes 0.75 Started: 2007 Smokeless Tobacco: Never Used Comments: 01/10/19 - 20 pack years (previous 2ppd) Alcohol Use Drinks/Week [...] Sign Reading Time Taken Comments Blood Pressure 142/78 02/07/2019 2:57 PM EST Pulse 103 02/07/2019 2:57 PM EST Temperature - - Respiratory Rate - - Oxygen Saturation 99% 02/07/2019 2:57 PM EST Inhaled Oxygen Concentration - - Weight 113.4 kg (250 lb) 02/07/2019 2:57 PM EST Height 167.6 cm (5' 6") 02/07/2019 2:57 PM EST Body Mass Index 40.35 02/07/2019 2:57 PM EST documented in this encounter Patient Instructions Patient InstructionsBridget Garcia NP - 02/07/2019 3:00 PM ESTLisinopril 2.5mg daily. Amlodipine 5mg daily. Schedule nurse visit to recheck blood pressure in 1-2 weeks. [facility] - [phone] - please call to schedule with them. Start Effexor 37.5 mg daily while weaning off lexapro - when done weaning off the lexapro you can increase this to 75 mg daily (two pills once daily). Wean off lexapro - decrease to 10 mg once daily for one week, then can do every other day for one week, then stop this medication. Follow up in 3-4 weeks when the switch is complete, can discuss going up in dose on effexor at that point. I did not call in buspirone since this interacts with the effexor - lets try the effexor first and see how you do. Schedule fasting labs. Schedule appointment with GI. documented in this encounter Progress Notes Bridget Garcia NP - 02/07/2019 3:00 PM EST PATIENT: Gina Shen : 1995 DATE OF SERVICE: 02/07/2019 CHIEF COMPLAINT: Chief Complaint Patient presents with Follow Up meds, diagnosed with BV 1wk ago insugaby wont cover script, period is 2 weeks late, also feels pressure and burning while urinating Subjective HISTORY OF PRESENT ILLNESS: Gina Shen is a 23-y.o. female. HPI [facility] week for pap smear and had follow up this morning, diagnosed with BV and given rx for metronidazole gel but insurance says wont cover it since not prescribed by PCP - working on getting this covered. Period is 2 weeks late or possibly more - LMP was 01/12. Urine hcg done this morning at [facility] and was negative. Blood test done this morning, [facility] but doing work up first. Sugars have been running high - high 200's +. One low sugar of 53. Sees Dr. Smart tomorrow for diabetes follow up. Last visit with him was last month. Has been working with him over the month to try to get sugars under control. Currently on actos, lantus and novolog. Stopped metformin d/t diarrhea. Stopped taking lisinopril for her hypertension because she was getting headaches. Past Medical History: Diagnosis Date Anxiety Asthma [...] Aero Soln Take 2 Puffs by inhalation. amLodipine (NORVASC) 5 MG Oral Tab Take 1 Tab by mouth DAILY. escitalopram (LEXAPRO) 10 MG Oral Tab Take 1 Tab by mouth DAILY. fluticasone-salmeterol diskus (ADVAIR DISKUS) 250-50 MCG/DOSE Inhalation AEROSOL POWDER, BREATH ACTIVATED Inhale 1 puff twice a day by inhalation route. Glucose Blood In Vitro Strip 1 Strip by Does not apply route FIVE TIMES DAILY. Insulin Aspart (NOVOLOG FLEXPEN SC) Inject 20 Units beneath the skin THREE TIMES DAILY BEFOREMEALS. Insulin Glargine (LANTUS FOR OPTICLIK SC) Inject 45 Units beneath the skin EVERY BEDTIME. Insulin Pen Needle (EXEL COMFORT POINT PEN NEEDLE) 31G X 6 MM Does not apply Misc 1 Each. lisinopril (PRINIVIL, ZESTRIL) 2.5 MG Oral Tab Take 1 Tab by mouth DAILY. metFORMIN HCL 750 MG Oral TABLET SR 24 HR Take 1,500 mg by mouth EVERY BEDTIME. pioglitazone (ACTOS) 15 MG Oral Tab Take 15 mg by mouth DAILY. pregabalin (LYRICA) 50 MG Oral Cap Take 1 capsule 3 times a day by oral route for 30 days. venlafaxine (EFFEXOR XR) 37.5 MG Oral CAPSULE SR 24 HR Take 1 Cap by mouth DAILY. No current facility-administered medications for this visit. [...] Financial resource strain: Not on file Food insecurity Worry: Not on file Inability: Not on file Transportation needs Medical: Not on file Non-medical: Not on file Tobacco Use Smoking status: Current Every Day Smoker Packs/day: 0.75 Types: Cigarettes Start date: 2007 Smokeless tobacco: Never Used Tobacco comment: 01/10/19 - 20 pack years (previous 2ppd) Substance and Sexual Activity Alcohol use: Not Currently Frequency: Never Comment: previous etoh use, none now (Dec 2018) Drug use: Not Currently Types: Heroin, Marijuana Comment: current marijuana (Dec 2018) Sexual activity: Yes Partners: Male Lifestyle Physical activity Days per week: Not on file Minutes per session: Not on file Stress: Not on file Relationships Social connections Talks on phone: Not on file Gets together: Not on file Attends orthodox service: Not on file Active member of club or organization: Not on file Attends meetings of clubs or organizations: Not on file Relationship status: Not on file Intimate partner violence Fear of current or ex partner: Not on file Emotionally abused: Not on file Physically abused: Not on file Forced sexual activity: Not on file Other Topics Concern Not on file Social History Narrative Recently moved from [place]. Lives with boyfriend grandmother and grandfather. REVIEW OF SYSTEMS: Review of Systems Gastrointestinal: Positive for abdominal pain. Negative for constipation, diarrhea, nausea and vomiting. Genitourinary: Positive for dysuria. Negative for frequency and urgency. Itching and vaginal discharge for several weeks Neurological: Positive for headaches. Objective PHYSICAL EXAM: VITALS: BP (!) 142/78 (BP Location: Left arm, Patient Position: Sitting) | Pulse 103 | Ht 5' 6" (1.676 m) | Wt 250 lb (113.4 kg) | SpO2 99% | BMI 40.35 kg/m Body mass index is 40.35 kg/m. Physical Exam Vitals signs and nursing [...] normal. Behavior: Behavior normal. Behavior is cooperative. Results for orders placed or performed in visit on 02/07/19 URINE DIP MANUAL (AMB POCT) Result Value Ref Range URINE GLUCOSE (POCT) >=1000 (A) Negative mg/dl URINE BILIRUBIN (POCT) Negative Negative Urine Ketones (POCT) Trace (A) Negative URINE SPECIFIC GRAVITY (POCT) 1.020 1.005 - 1.030 URINE BLOOD (POCT) Negative Negative URINE PH (POCT) 6.0 5.0 - 8.0 URINE PROTEIN (POCT) Negative Negative mg/dl URINE UROBILINOGEN (POCT) 0.2 0.2 - 1.0 mg/dl URINE NITRITES (POCT) Negative Negative URINE LEUKOCYTES (POCT) Negative Negative Cells/uL ACCU-CHECK GLUCOSE (AMB POCT) Result Value Ref Range Glucose, Accu-Check 221 70 - 99 mg/dl Glucose Strip Lot # [id number] QC Documented Yes Yes HCG, QUALITATIVE, URINE (AMB POCT) Result Value Ref Range HCG QUAL URINE (POCT) Negative Negative ASSESSMENT / IMPRESSION: ICD-9-CM ICD-10-CM 1. Type 2 diabetes mellitus with other diabetic kidney complication, with long- term current use of insulin ([facility]) 250.40 E11.29 lisinopril (PRINIVIL, ZESTRIL) 2.5 MG Oral Tab V58.67 Z79.4 2. Dysuria 788.1 R30.0 URINE DIP MANUAL (AMB POCT) URINE CULTURE (C&S) ISIDRA / KRUNAL / TRIC DNA PROBE ISIDRA / KRUNAL / TRIC DNA PROBE URINE CULTURE (C&S) 3. Amenorrhea 626.0 N91.2 HCG, QUALITATIVE, URINE (AMB POCT) 4. Glucose found in urine on examination 791.5 R81 ACCU-CHECK GLUCOSE (AMB POCT) 5. Chronic hepatitis C without hepatic coma (HCC) 070.54 B18.2 REFER TO GI 6. Depression, unspecified depression type 311 F32.9 venlafaxine (EFFEXOR XR) 37.5 MG Oral CAPSULE SR 24 HR escitalopram (LEXAPRO) 10 MG Oral Tab 7. Hypertension, unspecified type 401.9 I10 amLodipine (NORVASC) 5 MG Oral Tab Plan 1. Dysuria Urine dip negative for UTI. Swab collected by patient to check for BV and will treat with metronidazole if positive. Not doing further workup since she is seeing an obgyn for her current issues. - URINE DIP MANUAL (AMB POCT) - URINE CULTURE (C&S); Future - ISIDRA / KRUNAL / TRIC DNA PROBE; Future - ISIDRA / KRUNAL / TRIC DNA PROBE - URINE CULTURE (C&S) 2. Amenorrhea hcg negative. She had blood work done today at obgyn. - HCG, QUALITATIVE, URINE (AMB POCT) 3. Glucose found in urine on examination - ACCU-CHECK GLUCOSE (AMB POCT) 4. Chronic hepatitis C without hepatic coma (HCC) Chronic Hep C - she did not get her viral load test done. Will refer to GI for chronic care management. - REFER TO GI; Future 5. Depression, unspecified depression type Lexapro not working and would like to switch medications. Will wean down lexapro and start effexor. Follow up in 2-3 weeks after switch is complete. - venlafaxine (EFFEXOR XR) 37.5 MG Oral CAPSULE SR 24 HR; Take 1 Cap by mouth DAILY. Dispense: 30 Cap; Refill: 1 - escitalopram (LEXAPRO) 10 MG Oral Tab; Take 1 Tab by mouth DAILY. Dispense: 21 Tab; Refill: 0 6. Hypertension, unspecified type She stopped taking lisinopril because she was getting headaches. She has kidney damage already at baseline - will switch to a low dose of the lisinopril to continue with protective quality for kidneyswith diabetes and add low dose of amlodipine for the blood pressure. Recheck BP in 1-2 weeks. - amLodipine (NORVASC) 5 MG Oral Tab; Take 1 Tab by mouth DAILY. Dispense: 30 Tab; Refill: 1 7. Type 2 diabetes mellitus with other diabetic kidney complication, with long- term current use of insulin (HCC) She has appointment with Dr. Smart tomorrow for diabetes. - lisinopril (PRINIVIL, ZESTRIL) 2.5 MG Oral Tab; Take 1 Tab by mouth DAILY. Dispense: 30 Tab; Refill: 1 Author: Bridget Garcia NP 02/07/2019 19:21 documented in this encounter Plan of Treatment Date Type Specialty Care Team Description 02/21/2019 Lab Internal Medicine 02/21/2019 Nurse/Clinical Support Internal Medicine 03/02/2019 Office Visit Gastroenterology Amirah Carrion NP [address] [address] [phone] 03/09/2019 Office Visit Family Practice Bridget Garcia NP [address] [place] [address] [phone] 04/27/2019 Office Visit Pulmonary Jake Desir MD [address] [place] [address] [phone] Name Type Priority Associated Diagnoses Date/Time URINE CULTURE (C&S) Lab Routine Dysuria 02/07/2019 4:05 PM EST ISIDRA / KRUNAL / TRIC DNA Lab Routine Dysuria 02/07/2019 3:43 PM EST PROBE Name Type Priority Associated Diagnoses Order Schedule URINE CULTURE (C&S) Lab Routine Dysuria 1 Occurrences starting 02/07/2019 until 08/09/2019 ISIDRA / KRUNAL / TRIC Lab Routine Dysuria 1 Occurrences starting DNA PROBE 02/07/2019 until 08/06/2019 Name Type Priority Associated Diagnoses Order Schedule REFER TO GI Referral Routine Chronic hepatitis C without Expected: 2018, hepatic coma (HCC) Expires: 02/08/2020 Health Maintenance Due Date Last Done Comments HEPATITIS A IMMUNIZATION 1994 SERIES (1 of 2 - Risk 2-dose series) PNEUMOCOCCAL 0-64 YRS (1 of 1 06/05/1999 - PPSV23) DTaP/Tdap/Td Vaccines ( - 2004 Tdap) HPV IMMUNIZATION SERIES ( - 2004 Female 2-dose series) HIV SCREENING 2008 FOOT EXAM 06/05/2011 PAP SMEAR 2014 INFLUENZA VACCINE (#1) 2018 HEMOGLOBIN A1C 04/04/2019 01/02/2019 DEPRESSION SCREENING 01/11/2020 01/10/2019, 01/10/2019 Diabetic Eye Exam 03/12/2020 03/12/2018 MENINGOCOCCAL VACCINE IMM Aged Out No longer eligible based on patient's age to complete this topic documented as of this encounter Goals Goal Patient Goal Associated Recent Patient-Stated? Author Type Problems Progress Blood Pressure Blood Pressure 142/78 No Radha, < 140/90 (02/07/2019 Bridget, 2:57 PM EST) [facility] Note: This is an individualized treatment (blood [...] your depression. Glycohemoglobin A1c < 7.0 Diabetes Bridget Mota NP Note: This is an individualized treatment (diabetes control, HgbA1C) goal for Gina Shen: Displayed above is your progress towards your HgbA1C goal. Your goal is shown above (on the left); your most recent HgbA1C is shown on the right. Note that lower numbers are better. Weight loss vs. 18 mo Lifestyle 0 (02/07/2019 2:57 PM Bridget Mota NP max (lbs) >= [...] goal. Keep a regular sleep schedule Lifestyle Bridget Mota NP Note: This is an individualized lifestyle [...] Procedure Name Priority Date/Time Associated Diagnosis Comments ACCU-CHECK GLUCOSE Routine 02/07/2019 3:49 PM Glucose found in Results for this (AMB POCT) EST urine on examination procedure are in the results section. URINE DIP MANUAL Routine 02/07/2019 3:04 PM Dysuria Results for this (AMB POCT) EST procedure are in the results section. HCG, QUALITATIVE, Routine 02/07/2019 3:04 PM Amenorrhea Results for this URINE (AMB POCT) EST procedure are in the results section. documented in this encounter Results ACCU-CHECK GLUCOSE (AMB POCT) (02/07/2019 3:49 PM EST) Glucose, Accu-Check 221 70 - 99 mg/dl [facility] POCT Glucose Strip Lot # [id number] [facility] POCT QC Documented Yes Yes [facility] POCT Specimen Performing Organization Address City/State/Zipcode Phone Number [facility] [address] [place] [address] HCG, QUALITATIVE, URINE (AMB POCT) (02/07/2019 3:04 PM EST) HCG QUAL URINE (POCT) Negative Negative [facility] POCT Control Line Present Present [facility] POCT Lot Number [id number] [facility] POCT Expiration Date 07/2020 [facility] POCT Specimen Performing Organization Address [facility] Phone Number [facility] [address] [place] [address] URINE DIP MANUAL (AMB POCT) (02/07/2019 3:04 PM EST) URINE GLUCOSE (POCT) >=1000 (A) Negative mg/dl [facility] POCT URINE BILIRUBIN Negative Negative [facility] (POCT) POCT Urine Ketones (POCT) Trace (A) Negative [facility] POCT URINE SPECIFIC 1.020 1.005 - 1.030 [facility] GRAVITY (POCT) POCT URINE BLOOD (POCT) Negative Negative [facility] POCT URINE PH (POCT) 6.0 5.0 - 8.0 [facility] POCT URINE PROTEIN (POCT) Negative Negative mg/dl [facility] POCT URINE UROBILINOGEN 0.2 0.2 - 1.0 mg/dl [facility] (POCT) POCT URINE NITRITES (POCT) Negative Negative [facility] POCT URINE LEUKOCYTES Negative Negative Cells/uL [facility] (POCT) POCT Specimen Urine - Urine specimen (specimen) Performing Organization Address [facility] Phone Number [facility] [address] [place] [address] documented in this encounter Visit Diagnoses Diagnosis Dysuria Amenorrhea Absence of menstruation Glucose found in urine on examination Glycosuria Chronic hepatitis C without hepatic coma (HCC) Depression, unspecified depression type Hypertension, unspecified type Type 2 diabetes mellitus with other diabetic kidney complication, with long- term current use of insulin (HCC) documented in this encounter Insurance Payer Benefit Plan / Subscriber ID Effective Dates Phone Address Type Group ASHWIN NICOLE [facility] xxxxxxxxxxx 2018-Present Ashwin documented as of this encounter
[2019-02-23 17:20] VITALS: BP 149/96
== END 2019-02-23 18:40 | disposition left against medical advice (07) ==
LOC: ED 15:09
DX: R07.89 Other chest pain (principal); Z53.21 Procedure and treatment not carried out due to patient leaving prior to being seen by health care provider
CPT/HCPCS: 93005; 99281

== ENCOUNTER 2019-05-16 16:34 | Emergency (ER) | payer BC, OTHER ==
[2019-05-16] MEDS ORDERED: NS 0.9% 1000 ML** 1,000 ML IV ONE (17:42)
[2019-05-16] MEDS ORDERED: Metoclopramide IV* 5 MG/ML 2 ML VIAL IV SLOW PU ONE (17:49)
--- NOTE | 2019-05-16 17:53 | ED ---
HPI Diabetic - HPI Summary HPI Summary: 23 year old female at 14 weeks presents with abdominal pain for the past day. She has a history diabetic and on insulin. States she has history of DKA and noticed ketones in her urine. She states she increased her insulin to 90 units that did not help decrease her sugars. She admits to nausea vomiting. She denies any vaginal bleeding currently. No urinary symptoms. She does have flank pain. She denies any sore throat. No cough. No fevers. She is not around anyone who is sick. She has history of high pressure and high cholesterol. - History Of Current Complaint Chief Complaint: EDDiabeticProb Time Seen by Provider: 05/16/19 17:32 - Allergies/Home Medications Allergies/Adverse Reactions: Allergies Allergy/AdvReac Type Severity Reaction Status Date / Time acetaminophen [From Tylenol] Allergy Hives/Diff. Verified 01/01/19 09:14 Breathing/I tching bee venom protein (honey bee) Allergy Swelling Verified 01/01/19 09:14 Of Face,Lips,& Throat ibuprofen Allergy Hives/Diff. Verified 01/01/19 09:14 Breathing/I tching nitrofurantoin Allergy Hives Verified 01/07/19 23:28 [From Macrobid] Penicillins Allergy Hives Verified 01/01/19 09:14 tramadol Allergy Anaphylatic Verified 01/07/19 23:29 Shock ketorolac AdvReac Unknown Verified 01/07/19 23:29 Reaction Details Home Medications: Home Medications Albuterol HFA INHALER* [Ventolin HFA Inhaler*] 2 inh INH TID 01/02/19 [History Confirmed 01/07/19] Lexapro 5 mg (NF) 10 mg PO DAILY 01/02/19 [History Confirmed 01/08/19] Lisinopril TAB* [Prinivil TAB 5 MG*] 1 tab PO DAILY 01/07/19 [History Confirmed 01/07/19] Fluticasone-Salmeterol 250-50* [Advair Diskus 250-50*] 1 puff INH BID 01/08/19 [ History Confirmed 01/08/19] Insulin Glargine,Hum.rec.anlog [Basaglar Kwikpen 100 inuts/ml 3 ml x 5 Pens] 60 unit SUBCUT BEDTIME #0 01/08/19 [Rx Confirmed 01/08/19] Insulin Lispro [Admelog Solostar 100 units/ml 3 ml x 5 Pens] 20 unit SUBCUT TID WITH MEALS MDD 80 01/08/19 [History Confirmed 01/08/19] Metformin ER (NF) [Glucophage ER 750 MG TAB (NF)] 1,500 mg PO BEDTIME 01/08/19 [ History Confirmed 01/08/19] Pantoprazole TAB * [Protonix TAB*] 40 mg PO DAILY #30 tab 01/08/19 [Rx] Pioglitazone TAB* [Actos TAB*] 15 mg PO DAILY 01/08/19 [History Confirmed ] PMH/Surg Hx/FS Hx/Imm Hx Endocrine/Hematology History: Reports: Hx Diabetes, Other Endocrine/ Hematological Disorders - pancreatitis Denies: Hx Thyroid Disease Cardiovascular History: Reports: Hx Hypertension Denies: Hx Peripheral Vascular Disease Respiratory History: Reports: Hx Asthma, Hx Chronic Obstructive Pulmonary Disease (COPD) GI History: Denies: Hx Gall Bladder Disease History: Reports: Hx Renal Disease - small non function right kidney, Other Problems/Disorders - small right non functioning kidney Musculoskeletal History: Reports: Hx Arthritis Denies: Hx Osteoporosis Sensory History: Denies: Hx Cataracts, Hx Contacts or Glasses, Hx Glaucoma, Hx Hearing Aid Opthamlomology History: Denies: Hx Cataracts, Hx Contacts or Glasses, Hx Glaucoma Neurological History: Reports: Hx Migraine Denies: Hx Headaches, Hx Seizures, Hx Transient Ischemic Attacks (TIA) Psychiatric History: Reports: Hx Anxiety, Hx Bipolar Disorder - Surgical History Surgery Procedure, Year, and Place: cholecystectomy - Immunization History Date of Tetanus Vaccine: unk Date of Influenza Vaccine: unk Infectious Disease History: No Infectious Disease History: Reports: Hx Hepatitis - Hepatitis C Denies: Traveled Outside the [place] in Last 30 Days - Family History Known Family History: Positive: Hypertension, Diabetes, Other - Stomach Cancer - Social History Alcohol Use: Occasionally Hx Substance Use: No Substance Use Type: Reports: None Substance Use Comment - Amount & Last Used: greater than one week ago. Hx Tobacco Use: No Smoking Status (MU): Light Every Day Tobacco Smoker Review of Systems Negative: Fever Negative: Chest Pain Negative: Shortness Of Breath Positive: Abdominal Pain, Vomiting, Nausea All Other Systems Reviewed And Are Negative: Yes Physical Exam Triage Information Reviewed: Yes Vital Signs On Initial Exam: Initial Vitals Temp Pulse Resp BP Pulse Ox 98.2 F 108 19 137/81 98 05/16/19 16:36 05/16/19 16:36 05/16/19 16:36 05/16/19 16:36 05/16/19 16:36 Vital Signs Reviewed: Yes Appearance: Positive: Well-Appearing Skin: Positive: Warm, Dry Head/Face: Positive: Normal Head/Face Inspection Eyes: Positive: Normal, Conjunctiva Clear ENT: Positive: Pharynx normal Respiratory/Lung Sounds: Positive: Clear to Auscultation, Breath Sounds Present Cardiovascular: Positive: Normal, RRR Abdomen Description: Positive: Soft, Other: - mild diffuse abd pain Bowel Sounds: Positive: Present Musculoskeletal: Positive: Normal Neurological: Positive: Normal Psychiatric: Positive: Normal Procedures - Sedation Patient Received Moderate/Deep Sedation with Procedure: No Diagnostics - Vital Signs Vital Signs Temp Pulse Resp BP Pulse Ox 05/16/19 16:36 98.2 F 108 19 137/81 98 - Laboratory Lab Results: Lab Results 05/16/19 Range/Units 16:39 POC Glucose (mg/dL) 390 H (70-100) mg/dL Result Diagrams: 05/16/19 17:59 05/16/19 17:59 Lab Statement: Any lab studies that have been ordered have been reviewed, and results considered in the medical decision making process. Re-Evaluation - Re-Evaluation First Eval Re-Evaluation Time: 18:32 Comment: patient became very anxious and states she has to leave that her finance is in the parking lot. not sure if this is a reaction to reglan. offered benadryl and patient declined. patient does not want ultrasound. will give insulin and told to watch sugar at home Diabetic Course/Dx - Course Course Of Treatment: 23 year old female at 14 weeks presents with abdominal pain for the past day. She has a history diabetic and on insulin. States she has history of DKA and noticed ketones in her urine. She states she increased her insulin to 90 units that did not help decrease her sugars. She admits to nausea vomiting. She denies any vaginal bleeding currently. No urinary symptoms. She does have flank pain. She denies any sore throat. No cough. No fevers. She is not around anyone who is sick. She has history of high pressure and high cholesterol. on exam has diffuse abd pain. wbc normal. lipase normal. ph normal. glucose is 401. anion gap is normal. gave fluids and reglan patient states that she is anxious and has to leave. wanted to get an ultrasound but patient declined and wants to leave now. gave 15 insulin and patient was discharge. she will check sugars at home. urine likely contaminant as no symptoms. will wait for final culture. patient states can take keflex if needed. told check sugars more frequently. patient understand and agrees with plan. - Diagnoses Differential Dx: Diabetic Ketoacidosis, Gestational Diabetes, Hyperglycemia Provider Diagnoses: Hyperglycemia, Discharge ED - Sign-Out/Discharge Documenting (check all that apply): Patient Departure - Discharge Plan Condition: Good Disposition: HOME Patient Education Materials: Diabetic Hyperglycemia (ED) Referrals: Bridget Garcia NP [Primary Care Provider] - Additional Instructions: Check sugars more frequently and adjust insulin Follow up with ob Return to ED if develop any new or worsening symptoms - Billing Disposition and Condition Condition: GOOD Disposition: Home - Attestation Statements Provider Attestation: I have seen the patient with the ALVARADO and agree with the plan and documentation below except as noted: 23 y/o F w hx DM p/w elevated BG. I placed IV for access and labs, patient subsequently left for further eval by myself. US IV Ultrasound Guided Peripheral IV Procedure Note Indication: Unable to obtain adequate IV access Skin Prep:Chlorhexidine Sterile Prep (allowed to dry for thirty seconds) Sterility: Gloves Insertion: Appropriate time out was taken. Ultrasound guidance was utilized for vein selection, to document selected vessel patency and real time ultrasound visualization of vascular needle entry into venous lumen. Insertion Site: L AC Type of catheter: 20 gauge catheter Blood return:yes Saline lock: yes Post Procedure: Estimated blood loss: minimal Glenis Arnett MD
[2019-05-16 18:05] LABS: Urine Appearance Clear; Urine Bilirubin Negative (Negative); Urine Blood Negative (Negative); Urine Color Straw; Urine Glucose 3+(>=500 mg/dL) (Negative); Urine Ketones Negative (Negative); Urine Nitrite Negative (Negative); Urine Protein Negative (Negative); Urine Specific Gravity 1.029 (1.010-1.030); Urine Urobilinogen Negative (Negative)
[2019-05-16 18:06] LABS: ABS Eosinophils 0.1 10^3/ul (0-0.6); ABS Lymphocytes 1.9 10^3/ul (1.0-4.8); ABS Monocytes 0.3 10^3/ul (0-0.8); ABS Neutrophils 6.6 10^3/ul (1.5-7.7); Eosinophil % 1.2 %; Hematocrit 35 % (35-47); Hemoglobin 12.1 g/dL (12.0-16.0); Lymphocyte % 21.1 %; Mean Corpuscular HGB Conc 35 g/dL (31-36); Mean Corpuscular Hemoglobin 30 pg (27-31); Mean Corpuscular Volume 88 fL (80-97); Mean Platelet Volume 8.1 fL (7.4-10.4); Nucleated Red Blood Cells % 0.1; Platelet Count 270 10^3/uL (150-450); Red Cell Distribution Width 13 % (10-15)
[2019-05-16 18:12] LABS: Urine Bacteria Absent (Absent); Urine Red Blood Cell 1+(3-5/hpf) (Absent); Urine Squamous Epithelial Cell Present (Absent); Urine White Blood Cell 1+(6-10/hpf) (Absent)
[2019-05-16] MEDS ORDERED: Insulin REGULAR(*) 1 UNITS UNIT SUBCUT ONE (18:26)
[2019-05-16 18:28] LABS: Albumin 3.7 g/dL (3.2-5.2); Albumin/Globulin Ratio 1.2 (1-3); C Reactive Protein 16.53 mg/L (<8.01); Calcium 9.4 mg/dL (8.6-10.3); EGFR African American 102.8 (>60); EGFR Non-African American 84.9 (>60); Globulin 3.1 g/dL (2-4); Potassium 3.9 mmol/L (3.5-5.0); Total Bilirubin 0.2 mg/dL (0.2-1.0); Total Protein 6.8 g/dL (6.4-8.9)
[2019-05-16 18:39] VITALS: BP 150/69
== END 2019-05-16 18:39 | disposition home or self-care (01) ==
LOC: ED 16:34
DX: O24.911 Unspecified diabetes mellitus in pregnancy, first trimester (principal); E11.65 Type 2 diabetes mellitus with hyperglycemia; O16.1 Unspecified maternal hypertension, first trimester; O99.511 Diseases of the respiratory system complicating pregnancy, first trimester; J44.9 Chronic obstructive pulmonary disease, unspecified; O99.341 Other mental disorders complicating pregnancy, first trimester; F41.9 Anxiety disorder, unspecified; F31.9 Bipolar disorder, unspecified; Z90.49 Acquired absence of other specified parts of digestive tract; O99.331 Smoking (tobacco) complicating pregnancy, first trimester; F17.200 Nicotine dependence, unspecified, uncomplicated; Z3A.14 14 weeks gestation of pregnancy; Z79.4 Long term (current) use of insulin; Z79.899 Other long term (current) drug therapy; Z88.0 Allergy status to penicillin; Z88.1 Allergy status to other antibiotic agents; Z88.5 Allergy status to narcotic agent; Z88.6 Allergy status to analgesic agent; Z88.8 Allergy status to other drugs, medicaments and biological substances
CPT/HCPCS: 36415; 80053; 81003; 81015; 82803; 83690; 84702; 85025; 86140; 87077; 87086; 96374; 99283; J2765

== ENCOUNTER 2019-05-22 11:09 | Emergency (ER) | payer OTHER ==
--- NOTE | 2019-05-22 11:24 | ED ---
- HPI Summary HPI Summary: 23 year old with 4 miscarriages whom is 15 weeks gestation and a significant past medical history of type 2 diabetes, HTN, HLD, presents to the ED today with a CC of abdominal cramping and "spotting" since last night. PT OB/ [facility] is at [facility] in [place], [place]. Pt has O negative blood type. Pt states she has been having 10/10 lower abdominal cramping since yesterday but the spotting only occurred "yesterday while wiping". Pt denies vaginal bleeding or discharge at this time. Pt denies recent recreational drug use or alcohol use. Pt otherwise feels well and denies fever, cheat pain, SOB, vaginal bleeding, vaginal discharge, pain with urination, headache, rash. - History of Current Complaint Chief Complaint: EDOBProblems Stated Complaint: PREG 15 WEEKS CRAMPING PER PT Time Seen by Provider: 05/22/19 11:15 Hx Obtained From: Patient Chief Complaint: Concern for Demise, Pain, Vaginal Bleeding Onset/Duration: Started Days Ago Timing: Constant Severity: Severe Current Severity: Severe Pain Intensity: 8 Character: Cramping - Assessment Hx Now: Yes Hx : 6 Hx Para: 1 SAB: 4 - Additional Pertinent History Primary Care Physician: [id number] - Allergies/Home Medications Allergies/Adverse Reactions: Allergies Allergy/AdvReac Type Severity Reaction Status Date / Time acetaminophen [From Tylenol] Allergy Hives/Diff. Verified 05/22/19 11:14 Breathing/I tching bee venom protein (honey bee) Allergy Swelling Verified 05/22/19 11:14 Of Face,Lips,& Throat ibuprofen Allergy Hives/Diff. Verified 05/22/19 11:14 Breathing/I tching nitrofurantoin Allergy Hives Verified 05/22/19 11:14 [From Macrobid] Penicillins Allergy Hives Verified 05/22/19 11:14 tramadol Allergy Anaphylatic Verified 05/22/19 11:14 Shock ketorolac AdvReac Unknown Verified 05/22/19 11:14 Reaction Details Home Medications: Home Medications Humulin R U-500 Kwikpen 500 UNITS/ML x 3 Pens 40 units SUBCUT BEDTIME 05/22/19 [ History Confirmed 05/22/19] Humulin R U-500 Kwikpen 500 UNITS/ML x 3 Pens 50 units SUBCUT .DINNER TIME 05/21 [History Confirmed 05/22/19] Humulin R U-500 Kwikpen 500 UNITS/ML x 3 Pens 80 units SUBCUT QAM 05/22/19 [ History Confirmed 05/22/19] Vits96/Iron Fum/Folic [ Tablets 27-0.8 mg] 1 tab PO DAILY 05/21 [History Confirmed 05/22/19] PMH/Surg Hx/FS Hx/Imm Hx Endocrine/Hematology History: Reports: Hx Diabetes, Other Endocrine/ Hematological Disorders - pancreatitis Denies: Hx Thyroid Disease Cardiovascular History: Reports: Hx Hypertension Denies: Hx Peripheral Vascular Disease Respiratory History: Reports: Hx Asthma, Hx Chronic Obstructive Pulmonary Disease (COPD) GI History: Denies: Hx Gall Bladder Disease History: Reports: Hx Renal Disease - small non function right kidney, Other Problems/Disorders - small right non functioning kidney Musculoskeletal History: Reports: Hx Arthritis Denies: Hx Osteoporosis Sensory History: Denies: Hx Cataracts, Hx Contacts or Glasses, Hx Glaucoma, Hx Hearing Aid Opthamlomology History: Denies: Hx Cataracts, Hx Contacts or Glasses, Hx Glaucoma Neurological History: Reports: Hx Migraine Denies: Hx Headaches, Hx Seizures, Hx Transient Ischemic Attacks (TIA) Psychiatric History: Reports: Hx Anxiety, Hx Bipolar Disorder - Surgical History Surgery Procedure, Year, and Place: cholecystectomy - Immunization History Date of Tetanus Vaccine: unk Date of Influenza Vaccine: unk Infectious Disease History: No Infectious Disease History: Reports: Hx Hepatitis - Hepatitis C Denies: Traveled Outside the [place] in Last 30 Days - Family History Known Family History: Positive: Hypertension, Diabetes, Other - Stomach Cancer - Social History Alcohol Use: Occasionally Hx Substance Use: No Substance Use Type: Reports: None Substance Use Comment - Amount & Last Used: greater than one week ago. Hx Tobacco Use: No Smoking Status (MU): Light Every Day Tobacco Smoker Review of Systems Constitutional: Negative Eyes: Negative ENT: Negative Cardiovascular: Negative Respiratory: Negative Positive: Abdominal Pain Genitourinary: Negative Musculoskeletal: Negative Skin: Negative Neurological/Mental Status: Negative Psychological: Normal All Other Systems Reviewed And Are Negative: Yes Physical Exam - Summary Physical Exam Summary: Pt is in no acute distress. A&Ox3. Bedside ultrasound shows approx heart rate of 150 and regular. Pt abdomen is soft and nontender. No pain with palpation of the abdomen or guarding. - Physical Exam Triage Information Reviewed: Yes Vital Signs Reviewed: Yes Appearance: Positive: Well-Appearing, No Pain Distress, Well-Nourished Skin: Positive: Warm, Skin Color Reflects Adequate Perfusion Eyes: Positive: EOMI, SAAD ENT: Positive: Hearing grossly normal Respiratory/Lung Sounds: Positive: Clear to Auscultation, Breath Sounds Present Cardiovascular: Positive: RRR, S1, S2 Abdomen Description: Positive: Nontender, Soft. Negative: CVA Tenderness (R), CVA Tenderness (L), Distended, Guarding Bowel Sounds: Positive: Present Musculoskeletal: Positive: Strength/ROM Intact Neurological: Positive: Sensory/Motor Intact, Alert, Oriented to Person Place, Time, Normal Gait, Facial Symmetry, Speech Normal Psychiatric: Positive: Normal, Affect/Mood Appropriate AVPU Assessment: Alert Procedures - Sedation Patient Received Moderate/Deep Sedation with Procedure: No Diagnostics - Vital Signs Vital Signs Temp Pulse Resp BP Pulse Ox 05/22/19 11:10 98.5 F 102 18 140/91 97 - Laboratory Lab Statement: Any lab studies that have been ordered have been reviewed, and results considered in the medical decision making process. Course/Dx - Course Course Of Treatment: Pt evaluated for 15 weeks gestation with abdominal cramping and spotting. Blood type O negative. Vitals noted and stable. bedside ultrasound shows heart rate of approx 150 bpm. heart tone doppler shows heart rate of 156. POC blood glucose is 201 Urinalysis shows no evidence of protein spill or UTI however there is 3+ glucose. No evidence of preeclampsia. Ultrasound shows single live intrauterine gestation at 14 weeks, 4 days. No cervical dilation or bleeding. There is no evidence of spontaneous or miscarriage. Pt is not experiencing any significant medical pathology. No vaginal bleeding is noted, rhogam held. Pt DC to outpatient follow up. - Differential Diagnosis/HQI/PQRI: Incomplete , Missed , Spontaneous , Threatened , /Embryonic Demise, First Trimester Bleeding, HELLP Syndrome - Diagnoses Provider Diagnoses: Abdominal pain during intrauterine Discharge ED - Sign-Out/Discharge Documenting (check all that apply): Patient Departure - Discharge Plan Condition: Stable Disposition: HOME Patient Education Materials: Non-Threatening First Trimester Vaginal Bleed (ED) Referrals: Bridget Garcia NP [Primary Care Provider] - Additional Instructions: Please follow up with your WHEEL SETTER in 3-5 days for further evaluation and management. Please return to the ED if you develop any new or worsening symptoms such as vaginal bleeding, or fever. - Billing Disposition and Condition Condition: STABLE Disposition: Home
[2019-05-22 11:57] LABS: Urine Appearance Clear; Urine Bilirubin Negative (Negative); Urine Blood Negative (Negative); Urine Color Yellow; Urine Glucose 3+(>=500 mg/dL) (Negative); Urine Ketones Negative (Negative); Urine Nitrite Negative (Negative); Urine Protein Negative (Negative); Urine Specific Gravity 1.022 (1.010-1.030); Urine Urobilinogen Negative (Negative)
[2019-05-22 12:50] VITALS: BP 120/72
== END 2019-05-22 12:49 | disposition home or self-care (01) ==
LOC: ED 11:09
DX: O26.892 Other specified pregnancy related conditions, second trimester (principal); Z3A.15 15 weeks gestation of pregnancy; F41.9 Anxiety disorder, unspecified; F17.210 Nicotine dependence, cigarettes, uncomplicated; E11.9 Type 2 diabetes mellitus without complications; I10 Essential (primary) hypertension; E78.5 Hyperlipidemia, unspecified; N28.9 Disorder of kidney and ureter, unspecified; Z88.0 Allergy status to penicillin
CPT/HCPCS: 76815; 81003; 99282